=== PATIENT | female | born 1930 | race Caucasian/White ===

== ENCOUNTER → 2018-07-17 | Outpatient (CLI) | payer MEDICARE ==
--- NOTE | 2018-07-19 14:47 | CT ---
EXAMINATION TYPE: CT angio neck DATE OF EXAM: 07/17/2018 COMPARISON: None HISTORY: 87-year-old female carotid stenosis, loss of balance TECHNIQUE: Contiguous axial scanning of the head and neck performed with IV Contrast, patient injecte d with 65cc mL of Isovue 370. Coronal/sagittal MIP reconstructions performed. 3-D reconstructions gen erated on a dedicated independent workstation. CT DLP: 165.0 mGycm Automated exposure control for dose reduction was used. FINDINGS: Neck: Moderate upper lung centrilobular emphysema. Thickened right apical pleural parenchymal opacity, like ly scarring. This can be reassessed on follow-up CT chest. Some prominent retroperitoneal lymph nodes are present measuring up to 8 mm. Convention arch vessel branching anatomy. Atherosclerotic plaque causing mild narrowing at the origin of the left common carotid artery. The bilateral vertebral arteries are patent. The left vertebral artery slightly more dominant. Minimal atherosclerotic change at the left bifurcation. No significant stenosis of the left internal carotid artery. The right common carotid artery is patent with scattered mild eccentric atherosclerotic plaque and ca lcification. Mild atherosclerotic plaque and calcification at the right bifurcation causing mild, 25% narrowing at the carotid bulb. However, just distal to the bulb in the proximal right ICA, there is flap-like int raluminal filling defect that could represent prominent plaque ulceration. The contiguous lumen is na rrowed down to 2.4 mm which would be a moderate, just over 50% narrowing. Moderate spondylotic change mid to lower cervical spine. IMPRESSION: 1. MILD ATHEROSCLEROTIC CHANGE AT THE RIGHT BIFURCATION CAUSING A MILD, APPROXIMATELY 25% STENOSIS AT THE LEVEL OF THE RIGHT CAROTID BULB. 2. HOWEVER, JUST DISTAL TO THE CAROTID BULB WITHIN THE PROXIMAL RIGHT ICA, THERE IS A FLAP-LIKE FILLI NG DEFECT THAT COULD EITHER REPRESENT PROMINENT PLAQUE ULCERATION WITH LOOSE HANGING PLAQUE VERSUS A 6 MM LONG DISSECTION FLAP. 3. THE CONTIGUOUS LUMEN AT THIS LEVEL IS MODERATELY NARROWED WITH JUST OVER 50% STENOSIS. 3. COPD WITH IRREGULAR PLEURAL-BASED THICKENING AT THE RIGHT APEX PROBABLY REPRESENTING PLEURAL PAREN CHYMAL SCARRING. THREE-MONTH FOLLOW-UP CT CHEST RECOMMENDED TO REASSESS AND SURVEY THE REMAINDER OF L UNGS.
== END | disposition home or self-care (01) ==
LOC: EEVIPCON 07-09 11:00 → RADCTMAIN 15:37
PROVIDERS: ATTEND Family Medicine
DX: I65.21 Occlusion and stenosis of right carotid artery (principal); J44.9 Chronic obstructive pulmonary disease, unspecified; J92.9 Pleural plaque without asbestos; Z88.0 Allergy status to penicillin
CPT/HCPCS: 82565; 84520; 70498; 36415; Q9967

== ENCOUNTER 2020-05-19 14:22 | Inpatient (IN) | payer MEDICARE ==
[2020-05-19] MEDS ORDERED: NALOXONE 0.4 MG/ML 10 ML VIAL IVP STA (14:52)
--- NOTE | 2020-05-19 14:56 | ED ---
General Adult HPI - General Chief complaint: Altered Mental Status Stated complaint: Altered Mental Status Time Seen by Provider: 05/19/20 14:36 Source: patient Mode of arrival: EMS Limitations: no limitations, altered mental status - History of Present Illness Initial comments: Dictation was produced using [employer] dictation software. please excuse any grammatical, word or spelling errors. This patient was cared for during a federal and state declared state of emergency secondary to Covid 19 Chief Complaint: 89-year-old female past medical history of dementia, agitation, thyroid disease presents with altered mental status. History of Present Illness: 81-year-old female she was transferred to our facility from [facility]. She is accompanied by daughter. According to daughter patient has been very lethargic for the last several days. She's been very sleepy. Patient unable to provide HPI at this time. Patient was started on trazodone recently and since that patient has been more sleepy as usual. Patient unable to provide history at this time given mental status. Patient was last seen normal by daughter several weeks ago. It is unclear. Unable to obtain secondary to mental status PHYSICAL EXAM: General Impression: Obtunded, opens eyes to painful stimuli very loud noise HEENT: Normocephalic atraumatic, extra-ocular movements intact, pinpoint pupils, dry mucous membranes Cardiovascular: Heart regular rate and rhythm Chest: no retractions, no tachypnea Abdomen: abdomen soft, non-tender, non-distended, no organomegaly Musculoskeletal: Pulses present and equal in all extremities, no peripheral edema Motor: no focal deficits noted Neurological: Pinpoint pupils Skin: Intact with no visualized rashes ED course: 89-year-old female presents with altered mental status. Is unclear when patient's symptoms began however according to daughter it sounds like it's been slowly progressive over the last several days since starting a new medication. Signs upon arrival shows temperature 100.6 rectal, blood pressure 90. 52 cumbersome vital signs within acceptable limits. CODE STATUS was discussed with daughter who requests the patient be full code. Daughter requests that should patient lose a pulse or need mechanical ventilation she is agreeable. Laboratory evaluation obtained. CBC obtained showing lymphocytopenia. Coag panel is negative. Metabolic panel is within acceptable limits. Urinalysis shows 1+ ketones. Rotavirus is positive. Chest x-ray shows no acute processes. Computed tomography scan of the brain was obtained showing no acute processes. She reevaluated at bedside found to be stable medical condition. Patient be admitted for encephalopathy. At this point there is no obvious source of patient's symptoms. Hemodynamically she appears stable respiratory mejia she appears stable. Christina when patient's symptoms began. Patient be admitted to telemetry. Case was discussed with Dr. Gonzales who is willing to accept patients care for admission. Neurology will be consulted. EKG interpretation: Ventricular rate 65, normal sinus rhythm, MA interval 140, QRS 76, QTC 413. No MA prolongation, no QTC prolongation, T-wave inversions in inferior leads and medial lateral leads. No ST elevations. - Related Data Home Medications Medication Instructions Recorded Confirmed Biotin 5 mg PO DAILY 12/10/13 12/14/13 Levothyroxine Sodium [Synthroid] 0.5 tab PO DAILY 12/10/13 12/14/13 Lutein 10 mg PO DAILY 12/10/13 12/14/13 Multivitamins, Thera [Multivitamin] 1 tab PO DAILY 12/10/13 12/14/13 Tolterodine Tartrate [Tolterodine 4 mg PO HS 12/10/13 12/14/13 Tartrate ER] ramipriL [Altace] 5 mg PO DAILY 12/10/13 12/14/13 Allergies Allergy/AdvReac Type Severity Reaction Status Date / Time Penicillins Allergy Unknown Itching Verified 12/14/13 07:10 hydrocodone Allergy Unknown Verified 05/19/20 14:36 Review of Systems ROS Statement: Those systems with pertinent positive or pertinent negative responses have been documented in the HPI. ROS Other: All systems not noted in ROS Statement are negative. Past Medical History Past Medical History: Deep Vein Thrombosis (DVT), Hypertension Additional Past Medical History / Comment(s): STATES DVT LEFT GROIN (DX 30 YRS AGO), HX OF POLYPS, HEPATITIS A CHILD, SHINGLES X3 History of Any Multi-Drug Resistant Organisms: None Reported Past Surgical History: Appendectomy, Back Surgery, Joint Replacement Additional Past Surgical History / Comment(s): RT HIP REPLACEMENT, OOPHERECTOMY, CATARACTS, RECTOCELE REPAIR Additional Past Anesthesia/Blood Transfusion Reaction / Comment(s): STATES THEY HAD TO DO CPR ON HER AFTER SURGERY Past Psychological History: No Psychological Hx Reported Smoking Status: Former smoker Past Alcohol Use History: Rare Past Drug Use History: None Reported General Exam Limitations: no limitations, altered mental status Course Vital Signs 05/19/20 05/19/20 05/19/20 14:36 14:45 14:52 Temperature 98.4 F 100.6 F H Pulse Rate 73 Respiratory 23 23 Rate Blood Pressure 93/52 O2 Sat by Pulse 95 Oximetry 05/19/20 05/19/20 15:00 16:00 Temperature Pulse Rate 70 77 Respiratory 17 18 Rate Blood Pressure 111/59 107/49 O2 Sat by Pulse 98 98 Oximetry Medical Decision Making - Lab Data Result diagrams: 05/19/20 14:54 05/19/20 14:54 Lab Results 05/19/20 05/19/20 05/19/20 Range/Units 14:54 14:54 14:54 WBC 6.6 (3.8-10.6) k/uL RBC 3.82 (3.80-5.40) m/uL Hgb 11.7 (11.4-16.0) gm/dL Hct 36.5 (34.0-46.0) % MCV 95.6 (80.0-100.0) fL MCH 30.7 (25.0-35.0) pg MCHC 32.1 (31.0-37.0) g/dL RDW 13.8 (11.5-15.5) % Plt Count 216 (150-450) k/uL MPV 7.5 Neutrophils % 86 % Lymphocytes % 6 % Monocytes % 7 % Eosinophils % 0 % Basophils % 0 % Neutrophils # 5.7 (1.3-7.7) k/uL Lymphocytes # 0.4 L (1.0-4.8) k/uL Monocytes # 0.5 (0-1.0) k/uL Eosinophils # 0.0 (0-0.7) k/uL Basophils # 0.0 (0-0.2) k/uL PT 10.3 (9.0-12.0) sec INR 1.0 (<1.2) APTT 23.8 (22.0-30.0) sec Sodium (137-145) mmol/L Potassium (3.5-5.1) mmol/L Chloride (98-107) mmol/L Carbon Dioxide (22-30) mmol/L Anion Gap mmol/L BUN (7-17) mg/dL Creatinine (0.52-1.04) mg/dL Est GFR (CKD-EPI)AfAm (>60 ml/min/1.73 sqM) Est GFR (CKD-EPI)NonAf (>60 ml/min/1.73 sqM) Glucose (74-99) mg/dL Plasma Lactic Acid Gaudencio (0.7-2.0) mmol/L Calcium (8.4-10.2) mg/dL Ionized Calcium Silvia (4.5-5.3) mg/dL Magnesium (1.6-2.3) mg/dL Total Bilirubin (0.2-1.3) mg/dL AST (14-36) U/L ALT (4-34) U/L Alkaline Phosphatase (38-126) U/L Ammonia (<30) umol/L Troponin I (0.000-0.034) ng/mL Total Protein (6.3-8.2) g/dL Albumin (3.5-5.0) g/dL TSH (0.465-4.680) mIU/L Urine Color Yellow Urine Appearance Clear (Clear) Urine pH 6.5 (5.0-8.0) Ur Specific [place] 1.025 (1.001-1.035) Urine Protein Trace H (Negative) Urine Glucose (UA) Negative (Negative) Urine Ketones 1+ H (Negative) Urine Blood Negative (Negative) Urine Nitrite Negative (Negative) Urine Bilirubin Negative (Negative) Urine Urobilinogen <2.0 (<2.0) mg/dL Ur Leukocyte Esterase Negative (Negative) Coronavirus (PCR) (Not Detectd) 05/19/20 05/19/20 05/19/20 Range/Units 14:54 14:54 14:54 WBC (3.8-10.6) k/uL RBC (3.80-5.40) m/uL Hgb (11.4-16.0) gm/dL Hct (34.0-46.0) % MCV (80.0-100.0) fL MCH (25.0-35.0) pg MCHC (31.0-37.0) g/dL RDW (11.5-15.5) % Plt Count (150-450) k/uL MPV Neutrophils % % Lymphocytes % % Monocytes % % Eosinophils % % Basophils % % Neutrophils # (1.3-7.7) k/uL Lymphocytes # (1.0-4.8) k/uL Monocytes # (0-1.0) k/uL Eosinophils # (0-0.7) k/uL Basophils # (0-0.2) k/uL PT (9.0-12.0) sec INR (<1.2) APTT (22.0-30.0) sec Sodium 137 (137-145) mmol/L Potassium 4.3 (3.5-5.1) mmol/L Chloride 108 H (98-107) mmol/L Carbon Dioxide 23 (22-30) mmol/L Anion Gap 6 mmol/L BUN 24 H (7-17) mg/dL Creatinine 0.95 (0.52-1.04) mg/dL Est GFR (CKD-EPI)AfAm 62 (>60 ml/min/1.73 sqM) Est GFR (CKD-EPI)NonAf 54 (>60 ml/min/1.73 sqM) Glucose 100 H (74-99) mg/dL Plasma Lactic Acid Gaudencio 0.8 (0.7-2.0) mmol/L Calcium 8.8 (8.4-10.2) mg/dL Ionized Calcium Silvia 5.1 (4.5-5.3) mg/dL Magnesium 2.0 (1.6-2.3) mg/dL Total Bilirubin 0.4 (0.2-1.3) mg/dL AST 26 (14-36) U/L ALT 12 (4-34) U/L Alkaline Phosphatase 67 (38-126) U/L Ammonia <9 (<30) umol/L Troponin I <0.012 (0.000-0.034) ng/mL Total Protein 6.6 (6.3-8.2) g/dL Albumin 3.4 L (3.5-5.0) g/dL TSH 1.480 (0.465-4.680) mIU/L Urine Color Urine Appearance (Clear) Urine pH (5.0-8.0) Ur Specific [place] (1.001-1.035) Urine Protein (Negative) Urine Glucose (UA) (Negative) Urine Ketones (Negative) Urine Blood (Negative) Urine Nitrite (Negative) Urine Bilirubin (Negative) Urine Urobilinogen (<2.0) mg/dL Ur Leukocyte Esterase (Negative) Coronavirus (PCR) (Not Detectd) 05/19/20 Range/Units 15:50 WBC (3.8-10.6) k/uL RBC (3.80-5.40) m/uL Hgb (11.4-16.0) gm/dL Hct (34.0-46.0) % MCV (80.0-100.0) fL MCH (25.0-35.0) pg MCHC (31.0-37.0) g/dL RDW (11.5-15.5) % Plt Count (150-450) k/uL MPV Neutrophils % % Lymphocytes % % Monocytes % % Eosinophils % % Basophils % % Neutrophils # (1.3-7.7) k/uL Lymphocytes # (1.0-4.8) k/uL Monocytes # (0-1.0) k/uL Eosinophils # (0-0.7) k/uL Basophils # (0-0.2) k/uL PT (9.0-12.0) sec INR (<1.2) APTT (22.0-30.0) sec Sodium (137-145) mmol/L Potassium (3.5-5.1) mmol/L Chloride (98-107) mmol/L Carbon Dioxide (22-30) mmol/L Anion Gap mmol/L BUN (7-17) mg/dL Creatinine (0.52-1.04) mg/dL Est GFR (CKD-EPI)AfAm (>60 ml/min/1.73 sqM) Est GFR (CKD-EPI)NonAf (>60 ml/min/1.73 sqM) Glucose (74-99) mg/dL Plasma Lactic Acid Gaudencio (0.7-2.0) mmol/L Calcium (8.4-10.2) mg/dL Ionized Calcium Silvia (4.5-5.3) mg/dL Magnesium (1.6-2.3) mg/dL Total Bilirubin (0.2-1.3) mg/dL AST (14-36) U/L ALT (4-34) U/L Alkaline Phosphatase (38-126) U/L Ammonia (<30) umol/L Troponin I (0.000-0.034) ng/mL Total Protein (6.3-8.2) g/dL Albumin (3.5-5.0) g/dL TSH (0.465-4.680) mIU/L Urine Color Urine Appearance (Clear) Urine pH (5.0-8.0) Ur Specific [place] (1.001-1.035) Urine Protein (Negative) Urine Glucose (UA) (Negative) Urine Ketones (Negative) Urine Blood (Negative) Urine Nitrite (Negative) Urine Bilirubin (Negative) Urine Urobilinogen (<2.0) mg/dL Ur Leukocyte Esterase (Negative) Coronavirus (PCR) Detected A (Not Detectd) Disposition Clinical Impression: Encephalopathy Disposition: ADMITTED IP TO THIS HOSP Condition: Fair Referrals: Candi Tavarez DO [Primary Care Provider] - 1-2 days Decision Time: 16:35
[2020-05-19 15:12] LABS: Ionized Calcium 5.1 mg/dL (4.5-5.3)
[2020-05-19 15:15] LABS: Basophils % (A) 0 %; Eosinophils % (A) 0 %; HCT 36.5 % (34.0-46.0); HGB 11.7 gm/dL (11.4-16.0); Lymphocytes # (A) 0.4 k/uL (1.0-4.8); Lymphocytes % (A) 6 %; MCH 30.7 pg (25.0-35.0); MCHC 32.1 g/dL (31.0-37.0); MCV 95.6 fL (80.0-100.0); Mean Platelet Volume 7.5; Monocytes # (A) 0.5 k/uL (0-1.0); Monocytes % (A) 7 %; Neutrophils # (A) 5.7 k/uL (1.3-7.7); Neutrophils % (A) 86 %; Platelet Count 216 k/uL (150-450); RBC 3.82 m/uL (3.80-5.40); RDW 13.8 % (11.5-15.5); WBC 6.6 k/uL (3.8-10.6)
[2020-05-19 15:19] LABS: Albumin 3.4 g/dL (3.5-5.0); Calcium 8.8 mg/dL (8.4-10.2); Potassium 4.3 mmol/L (3.5-5.1); Total Bilirubin 0.4 mg/dL (0.2-1.3); Total Protein 6.6 g/dL (6.3-8.2)
[2020-05-19 15:20] LABS: Lactic Acid, Venous 0.8 mmol/L (0.7-2.0)
[2020-05-19 15:22] LABS: Appearance,Urine Clear (Clear); Bilirubin,Urine Negative (Negative); Blood,Urine Negative (Negative); Color,Urine Yellow; Glucose,Urine (UA) Negative (Negative); Ketones,Urine 1+ (Negative); Leukocyte Esterase,Urine Negative (Negative); Nitrite,Urine Negative (Negative); PH, Urine 6.5 (5.0-8.0); Protein,Urine Trace (Negative); Specific Gravity,Urine 1.025 (1.001-1.035); Urobilinogen,Urine <2.0 mg/dL (<2.0)
--- NOTE | 2020-05-19 15:37 | CT ---
EXAMINATION TYPE: CT brain wo con DATE OF EXAM: 05/19/2020 COMPARISON: None HISTORY: Altered mental status. CT DLP: 1091.[address] of the brain was performed. The ventricles, basal cisterns and sulci overlying the cerebral convexities demonstrate mild enlargem ent. Remote right occipital infarct. Remote insult left occipital lobe as well. There is no evidence for intracranial hemorrhage or sulcal effacement. There is decreased attenuation about the periventricular white matter and deep white matter of both c erebral hemispheres, compatible with chronic small vessel ischemia. Differential diagnosis does inclu de demyelination. No mass effects are seen.No midline shift. Osseous calvarium is intact. If symptoms persist consider MRI. IMPRESSION: 1. Age related atrophic and chronic small vessel ischemic change without acute intracranial process s een at this time.
[2020-05-19 15:43] LABS: Partial Thromboplastin Time 23.8 sec (22.0-30.0); Prothrombin Time 10.3 sec (9.0-12.0)
--- NOTE | 2020-05-19 16:14 | XR ---
EXAMINATION TYPE: XR chest 1V portable DATE OF EXAM: 05/19/2020 HISTORY: Shortness of breath. COMPARISON: None. TECHNIQUE: Single view of the chest is submitted. FINDINGS: Demonstrated are scattered senescent parenchymal change. There is no evidence for focal infiltrate. The heart is stable. Hilar and mediastinal structures are within normal limits. Degenerative changes are seen of the dorsal spine. IMPRESSION: 1. Chronic changes without evidence for acute pulmonary disease.
[2020-05-19] MEDS ORDERED: NALOXONE 0.4 MG/ML 1 ML VIAL IV PRN (16:35)
[2020-05-19] MEDS ORDERED: ACETAMINOPHEN TAB 325 MG TAB PO PRN (16:35)
[2020-05-19] MEDS ORDERED: IPRATROPIUM-ALBUTEROL 3 ML NEB INHALATION PRN (19:04)
[2020-05-19 19:28] LABS: C Reactive Protein 44.6 mg/L (<10.0)
[2020-05-19] MEDS: SODIUM CHLORIDE 0.9% 1,000 ML IV SCH (19:40)
--- NOTE | 2020-05-19 19:40 | HP ---
HISTORY AND PHYSICAL I am covering for Dr. Gomez. DATE OF SERVICE: 05/19/2020 CHIEF COMPLAINT: Change in mental status. HISTORY OF PRESENT ILLNESS: This 89-year-old woman with a past medical history of multiple medical problems, including history of DVT, hypertension, history of DVT of the left groin, history of hepatitis as a child, history of appendectomy, being followed by Dr. Candi Tavarez in the outpatient setting, was apparently living in [facility]. The patient has a history of dementia and agitation also. The family has noted some change in mental status over the past several days. The patient became progressively lethargic and sleepy. The patient was taken to [facility] and was admitted for further evaluation and treatment. The patient was started on trazodone recently. The patient was not sleeping well also. There is no history of any fever, rigor or chills. No history of trauma. The patient is unable to give a coherent history. She is only mumbling. Most of the history is taken from my discussion with the patient's daughter at the bedside as well as discussion with staff, review of chart and discussion with the ER physician. PAST MEDICAL HISTORY: History of DVT, hypertension, appendectomy, back surgery. MEDICATIONS: Medications prior to admission include Risperdal, Spiriva, ramipril, metoprolol, Namenda, Synthroid, Breo Ellipta, Aricept, Eliquis, Align, Lipitor. ALLERGIES: PENICILLIN, HYDROCODONE. Family history, social history, review of systems could not be taken because of the patient's change in mental status. Previous history of smoking per chart. PHYSICAL EXAMINATION: The patient is stuporous, slightly arousable. Pulse 70, blood pressure 111/59, respiration 17, temperature 100.6, pulse ox 98% on 15 L non-rebreather mask. HEENT: Conjunctivae normal. NECK: No jugular venous distention. CARDIOVASCULAR SYSTEM: S1, S2 muffled. RESPIRATORY SYSTEM: Breath sounds diminished at the bases. A few scattered rhonchi and crackles. ABDOMEN: Soft, non-tender. LEGS: No edema. No swelling. NERVOUS SYSTEM: Diffusely weak. SKIN: No ulcer, rash, bleeding. JOINTS: No active deforming arthropathy. LABS: CBC within normal limits. Sodium 137, potassium 4.3, glucose 100. COVID-19 is positive. ASSESSMENT: 1. Acute COVID-19 infection with acute hypoxic respiratory failure with possible pneumonia. 2. Toxic metabolic encephalopathy secondary to COVID-19. 3. Increased BUN. 4. Increased random blood sugar. 5. History of deep venous thrombosis. 6. History of hypertension. 7. History of appendectomy. 8. History of back surgery. 9. History of degenerative joint disease. 10.History of dementia. 11.History of agitation recently. 12.Remote history of nicotine dependence. 13.Moderate protein-calorie malnutrition. 14.FULL CODE. RECOMMENDATIONS AND DISCUSSION: In this 89-year-old woman who presented with multiple complex medical issues, we will monitor the patient closely, continue the current medications, continue symptomatic treatment. Otherwise at this time I recommend evaluation for COVID-19 looking for any inflammatory markers. I would also recommend a CT scan of the chest looking for any infiltrates. If there are significant findings, the patient might be a candidate for remdesivir. I would also recommend pulmonary consultation as well as consultation with Infectious Disease. The prognosis is guarded because of multiple complex medical issues. Further recommendations to follow. A copy of this dictation is being forwarded to Dr. Candi Tavarez, who is the primary physician. MMODL / IJN: [id number] /
[2020-05-19] MEDS ORDERED: IPRATROPIUM-ALBUTEROL 3 ML NEB INHALATION SCH (20:00)
[2020-05-19] MEDS: DEXAMETHASONE SOD PHOSPHATE 10 MG/ML 1 ML VIAL IV SCH (20:22)
[2020-05-19] MEDS: ATORVASTATIN 20 MG TAB PO SCH (20:23)
[2020-05-19] MEDS: METOPROLOL TARTRATE 25 MG TAB PO SCH (20:23)
[2020-05-19] MEDS: ASCORBIC ACID 500 MG TAB PO SCH (20:23)
[2020-05-19] MEDS: MEMANTINE 10 MG TAB PO SCH (20:23)
[2020-05-19] MEDS: APIXABAN 2.5 MG TABLET PO SCH (20:24)
[2020-05-19] MEDS ORDERED: MORPHINE SULFATE 2 MG/ML SYRINGE IVP PRN (23:10)
[2020-05-20] MEDS: DEXAMETHASONE SOD PHOSPHATE 10 MG/ML 1 ML VIAL IV SCH (09:19)
[2020-05-20] MEDS: ALBUTEROL HFA INHALER INHALATION SCH ×3 (09:52→20:29)
[2020-05-20] MEDS ORDERED: ALBUTEROL HFA INHALER INHALATION PRN (09:54)
[2020-05-20 11:13] LABS: Basophils # (A) 0.1 k/uL (0-0.2); Basophils % (A) 0 %; Eosinophils % (A) 0 %; HCT 36.8 % (34.0-46.0); Lymphocytes # (A) 0.8 k/uL (1.0-4.8); Lymphocytes % (A) 5 %; MCH 32.1 pg (25.0-35.0); MCHC 32.7 g/dL (31.0-37.0); MCV 98.1 fL (80.0-100.0); Mean Platelet Volume 7.6; Monocytes # (A) 0.5 k/uL (0-1.0); Monocytes % (A) 3 %; Neutrophils # (A) 15.8 k/uL (1.3-7.7); Neutrophils % (A) 92 %; Platelet Count 187 k/uL (150-450); RBC 3.76 m/uL (3.80-5.40); RDW 13.2 % (11.5-15.5); WBC 17.3 k/uL (3.8-10.6)
[2020-05-20 11:22] LABS: Calcium 8.6 mg/dL (8.4-10.2)
--- NOTE | 2020-05-20 11:30 | P.CNPUL ---
History of Present Illness Consult date: 05/20/20 Reason for consult: dyspnea, cough, other Chief complaint: Covid 19 pneumonia History of present illness: This is a 89-year-old female advanced dementia patient is a resident of [facility] followed Dr. Candi Tavarez for primary care activity, she was noted by family member to be more somnolent fatigued and lethargic brought into the hospital for further evaluation Covid 19 test is positive chest x-ray some subtle infiltrates are present, her past medical history significant for deep venous thrombosis, hypertension hypertensive cardiovascular disease, hepatitis, with history of advanced dementia and Alzheimer's disease, currently patient is being treated with bronchodilator, direct anticoagulants, continuation of home medicine, and dexamethasone 6 mg daily, patient white cell count is up to 17,000, BUN/creatinine 37 and 1.13, oxygen saturation is 96% on 3 L, she is awake but nonverbal and noncommunicative Review of Systems ROS unobtainable: due to mental status All systems: negative Past Medical History Past Medical History: Deep Vein Thrombosis (DVT), Hypertension Additional Past Medical History / Comment(s): STATES DVT LEFT GROIN (DX 30 YRS AGO), HX OF POLYPS, HEPATITIS A CHILD, SHINGLES X3 History of Any Multi-Drug Resistant Organisms: Unobtainable Past Surgical History: Appendectomy, Back Surgery, Joint Replacement Additional Past Surgical History / Comment(s): RT HIP REPLACEMENT, OOPHERECTOMY, CATARACTS, RECTOCELE REPAIR Past Anesthesia/Blood Transfusion Reactions: Unable to Obtain Additional Past Anesthesia/Blood Transfusion Reaction / Comment(s): STATES THEY HAD TO DO CPR ON HER AFTER SURGERY Past Psychological History: Unable to Obtain Smoking Status: Unknown if ever smoked Past Alcohol Use History: Rare Past Drug Use History: None Reported Medications and Allergies Home Medications Medication Instructions Recorded Confirmed Type Apixaban [Eliquis] 2.5 mg PO BID@0800,199905/19/20 05/19/20 History Atorvastatin [Lipitor] 20 mg PO DAILY@199905/19/20 05/19/20 History Bifidobacterium Infantis [Align] 4 mg PO DAILY@0800 05/19/20 05/19/20 History Donepezil [Aricept] 10 mg PO DAILY@0800 05/19/20 05/19/20 History Fluticasone/Vilanterol [Breo 1 puff INHALATION RT-DAILY@199905/19/20 05/19/20 History Ellipta 100-25 Mcg Inhaler] Levothyroxine Sodium [Synthroid] 75 mcg PO DAILY@0805/19/20 05/19/20 History Memantine [Namenda] 10 mg PO BID@08,199905/19/20 05/19/20 History Metoprolol Tartrate 25 mg PO BID@0800,199905/19/20 05/19/20 History Tiotropium Bieber [Spiriva 1 puff INHALATION RT-DAILY@199905/19/20 05/19/20 History Respimat] ramipriL [Ramipril] 2.5 mg PO DAILY@0805/19/20 05/19/20 History risperiDONE [RisperDAL] 1 mg PO DAILY@199905/19/20 05/19/20 History Allergies Allergy/AdvReac Type Severity Reaction Status Date / Time Penicillins Allergy Unknown Itching Verified 05/19/20 17:24 hydrocodone Allergy Unknown Verified 05/19/20 17:24 Physical Exam Vitals: Vital Signs Temp Pulse Pulse Resp BP BP Pulse Ox 05/20/20 08:00 98.5 F 70 16 110/56 98 05/20/20 03:30 98.9 F 61 17 102/60 96 05/20/20 02:48 99.1 F 73 17 105/65 97 05/20/20 01:40 99.1 F 88 16 90/42 95 05/19/20 23:00 99.0 F 93 18 107/56 95 05/19/20 20:00 84 22 121/56 94 L 05/19/20 19:00 100.8 F H 72 22 152/70 94 L 05/19/20 18:00 80 20 159/74 96 05/19/20 17:00 72 16 146/72 96 05/19/20 16:00 77 18 107/49 98 05/19/20 15:00 70 17 111/59 98 05/19/20 14:52 23 05/19/20 14:45 100.6 F H 05/19/20 14:36 98.4 F 73 23 93/52 95 Intake and Output 05/19/20 05/20/20 05/20/20 22:59 06:59 14:59 Output Total 200 100 Balance -200 -100 Output: Urine 200 100 Other: Voiding Method Indwelling Catheter Indwelling Catheter Weight 51 kg - Constitutional General appearance: average body habitus, cooperative, disheveled - EENT Eyes: PERRLA Ears: bilateral: normal - Neck Carotids: bilateral: upstroke normal Thyroid: bilateral: normal size - Respiratory Respiratory: bilateral: diminished - Cardiovascular Rhythm: regular Heart sounds: normal: S1, S2 - Gastrointestinal General gastrointestinal: normal bowel sounds - Integumentary Integumentary: normal - Musculoskeletal Musculoskeletal: generalized weakness - Psychiatric Arousable but nonverbal and noncommunicative Results - Laboratory Findings CBC and BMP: 05/20/20 10:21 05/19/20 14:54 PT/INR, D-dimer PT 10.3 sec (9.0-12.0) 05/19/20 14:54 INR 1.0 (<1.2) 05/19/20 14:54 D-Dimer 0.54 mg/L FEU (<0.60) 05/19/20 15:00 Abnormal lab findings: Abnormal Labs 05/19/20 05/19/20 05/19/20 14:54 14:54 14:54 WBC RBC Neutrophils # Lymphocytes # 0.4 L Chloride 108 H BUN 24 H Glucose 100 H C-Reactive Protein Albumin 3.4 L Urine Protein Trace H Urine Ketones 1+ H Coronavirus (PCR) 05/19/20 05/19/20 05/20/20 15:00 15:50 10:21 WBC 17.3 H RBC 3.76 L Neutrophils # 15.8 H Lymphocytes # 0.8 L Chloride BUN Glucose C-Reactive Protein 44.6 H Albumin Urine Protein Urine Ketones Coronavirus (PCR) Detected A - Diagnostic Findings Chest x-ray: report reviewed, image reviewed (Finding as noted above) Assessment and Plan Assessment: Covid 19 pneumonia Acute hypoxic respiratory failure Altered mental status History of deep venous thrombosis on the left side Advanced dementia and Alzheimer's disease Plan: Supplemental oxygen IV Decadron for 10 days IV Remdesivir for 5 days Prone positioning or side positioning if possible Continue oral direct anticoagulants Continue home medications Overall prognosis guarded Time with Patient: Greater than 30
[2020-05-20 12:17] LABS: Glucose,Whole Blood 95 mg/dL (75-99)
[2020-05-20] MEDS: lisinopriL 10 MG TAB PO SCH (13:15)
[2020-05-20] MEDS: MEMANTINE 10 MG TAB PO SCH ×2 (13:15→20:16)
[2020-05-20] MEDS: LACTOBACILLUS ACIDOPH & BULGAR 1 EACH PACKET PO SCH (13:15)
[2020-05-20] MEDS: DONEPEZIL 10 MG TAB PO SCH (13:15)
[2020-05-20] MEDS: LEVOTHYROXINE 75 MCG TAB PO SCH (13:15)
[2020-05-20] MEDS: ASCORBIC ACID 500 MG TAB PO SCH (13:16)
[2020-05-20] MEDS: CHOLECALCIFEROL 1,000 UNIT TAB PO SCH (13:16)
[2020-05-20] MEDS: ZINC SULFATE 220 MG CAP PO SCH (13:16)
[2020-05-20] MEDS: METOPROLOL TARTRATE 25 MG TAB PO SCH ×2 (13:16→16:43)
[2020-05-20] MEDS ORDERED: REMDESIVIR 200 MG in SODIUM CHLORIDE 0.9% 250 ML IVPB ONE (14:00)
--- NOTE | 2020-05-20 14:51 | P.CON ---
Consult Note - . Consult date: 05/20/20 Assessment/Plan:: Clinical Problems: Major neurocognitive disorder of the Alzheimer's type, delirium secondary clover 19 Interim history: I reviewed the medical record and attempted to interview the patient. She is an 89-year-old woman transferred from her senior care with a marked change in mental status. Her rapid COVID test was positive. The hospitalist consult to psychiatry because she has a history of aggressive behavior. She was unresponsive and was unable to obtain day history. Mental status exam: He said as a thin and frail-appearing elderly woman who is laying in bed. She did not respond to her name or arouse when I shook her leg. She was not agitated, restless or aggressive. Assessment: This is a delirium in elderly woman who has a major neurocognitive disorder with marked functional impairment. Plan: There is no indication for psychiatric intervention at this time. Thank you for this consult. Psychiatry will sign off the case.
[2020-05-20] MEDS: LORazepam 2 MG/ML INJ IV PRN (15:29)
[2020-05-20 16:37] LABS: Glucose,Whole Blood 93 mg/dL (75-99)
[2020-05-20] MEDS: APIXABAN 2.5 MG TABLET PO SCH ×2 (16:43→20:17)
[2020-05-20] MEDS ORDERED: DILTIAZEM 5 MG/ML 5 ML VIAL IVP STA (16:59)
[2020-05-20] MEDS ORDERED: DILTIAZEM DRIP BOLUS FROM BAG 1 MG SOLN IV STA (17:33)
[2020-05-20] MEDS ORDERED: niCARdipine 20 MG in SODIUM CHLORIDE 0.9% 192 ML IV SCH (18:00)
[2020-05-20] MEDS: DILTIAZEM 125 MG in SODIUM CHLORIDE 0.9% 100 ML IV SCH (18:12)
[2020-05-20] MEDS: ATORVASTATIN 20 MG TAB PO SCH (20:16)
[2020-05-20 20:40] LABS: Glucose,Whole Blood 95 mg/dL (75-99)
[2020-05-21] MEDS: SODIUM CHLORIDE 0.9% 1,000 ML IV SCH (01:26)
[2020-05-21 06:39] LABS: Glucose,Whole Blood 98 mg/dL (75-99)
--- NOTE | 2020-05-21 07:05 | PN ---
PROGRESS NOTE DATE OF SERVICE: 05/20/2020 I am covering for Dr. Gomez. INTERVAL HISTORY: This 89-year-old woman who was admitted with change in mental status had COVID-19. The patient also had COVID-19 pneumonia. he patient was confused and the patient was feeling better, but currently the patient is agitated also. The patient was started on remdesivir also. Psychiatry has also been consulted. Patient also has atrial fibrillation with fast ventricular rate. Cardizem has been initiated. Cardiology also has been consulted. PAST MEDICAL HISTORY: Reviewed. REVIEW OF SYMPTOMS: Review of systems could not be taken as the patient is confused at this time. CODE STATUS: THE PATIENT CONTINUES TO BE FULL CODE PER FAMILY INSTRUCTIONS CURRENT MEDICATIONS: Tylenol, Ventolin, Eliquis, vitamin C, Lipitor, cholecalciferol, Decadron, Cardizem, Aricept, Zestril, Ativan, Namenda, Narcan, remdesivir. PHYSICAL EXAM: Patient is conscious, confused. Pulse 147 and irregular. Blood pressure 96/62, respirations 16, temperature 99 degrees, pulse ox 96% on 2 L. HEENT: Conjunctivae normal. NECK: No jugular venous distention. CARDIOVASCULAR: S1 and S2. LUNGS: Breath sounds diminished in the bases, a few scattered rhonchi and crackles. ABDOMEN: Soft and nontender. NERVOUS SYSTEM: No focal deficits. LABS: WBC 17.3, hemoglobin 12, and BUN is 1.13. ASSESSMENT: 1. Acute COVID-19 infection with acute bilateral pneumonia with history of pneumonia with acute hypoxic respiratory failure. 2. Toxic metabolic encephalopathy secondary to COVID-19. 3. Atrial fibrillation with fast ventricular rate. 4. Increased BUN. 5. Increased random blood sugar. 6. History of deep vein thrombosis. 7. Hypertension. 8. History of appendectomy. 9. History of back surgery. 10.History of degenerative joint disease. 11.History of dementia. 12.History of agitation recently. 13.Remote history of nicotine dependence. 14.Moderate protein calorie malnutrition. 15.FULL CODE. RECOMMENDATIONS AND DISCUSSION: I recommend to continue current medications, continue symptomatic treatment, continue remdesivir, continue Cardizem. Cardiology consultation. Otherwise a 2D echo with Doppler. Psychiatry has seen the patient and pulmonary has also seen the patient. Psychiatry has signed off from the case. Otherwise, we will continue to monitor. Prognosis guarded. Further recommendations to follow. MMODL / IJN: [id number] /
[2020-05-21 08:02] LABS: Basophils % (A) 0 %; Eosinophils % (A) 0 %; HCT 41.3 % (34.0-46.0); HGB 13.8 gm/dL (11.4-16.0); Lymphocytes % (A) 7 %; MCH 31.6 pg (25.0-35.0); MCHC 33.3 g/dL (31.0-37.0); MCV 94.9 fL (80.0-100.0); Mean Platelet Volume 8.1; Monocytes # (A) 0.5 k/uL (0-1.0); Monocytes % (A) 4 %; Neutrophils # (A) 11.7 k/uL (1.3-7.7); Neutrophils % (A) 88 %; Platelet Count 213 k/uL (150-450); RBC 4.36 m/uL (3.80-5.40); RDW 13.3 % (11.5-15.5); WBC 13.3 k/uL (3.8-10.6)
[2020-05-21 08:09] LABS: Calcium 8.6 mg/dL (8.4-10.2); Potassium 4.3 mmol/L (3.5-5.1)
[2020-05-21] MEDS: lisinopriL 10 MG TAB PO SCH (09:10)
[2020-05-21] MEDS: METOPROLOL TARTRATE 50 MG TAB PO SCH ×2 (09:10→21:46)
[2020-05-21] MEDS: CHOLECALCIFEROL 1,000 UNIT TAB PO SCH (09:10)
[2020-05-21] MEDS: DONEPEZIL 10 MG TAB PO SCH (09:10)
[2020-05-21] MEDS: ZINC SULFATE 220 MG CAP PO SCH (09:10)
[2020-05-21] MEDS: LEVOTHYROXINE 75 MCG TAB PO SCH (09:10)
[2020-05-21] MEDS: ASCORBIC ACID 500 MG TAB PO SCH (09:10)
[2020-05-21] MEDS: LACTOBACILLUS ACIDOPH & BULGAR 1 EACH PACKET PO SCH (09:11)
[2020-05-21] MEDS: DEXAMETHASONE SOD PHOSPHATE 10 MG/ML 1 ML VIAL IV SCH (09:11)
[2020-05-21] MEDS: MEMANTINE 10 MG TAB PO SCH ×2 (09:11→21:46)
[2020-05-21] MEDS: APIXABAN 2.5 MG TABLET PO SCH ×2 (09:11→21:46)
--- NOTE | 2020-05-21 11:51 | P.PN ---
Subjective Progress Note Date: 05/21/20 Principal diagnosis: Covid 19 pneumonia Acute hypoxic respiratory failure Altered mental status History of deep venous thrombosis on the left side Advanced dementia and Alzheimer's disease 05/21/2020, patient seen eval examined during the rounds labs reviewed medications reviewed, she remains afebrile, oxygen saturation 93% on 3 L, hemodynamic status stable, This is a 89-year-old female advanced dementia patient [facility] Dr. Candi Tavarez for primary care activity, she was noted by family member to be more somnolent fatigued and lethargic brought into the hospital for further evaluation Covid 19 test is positive chest x-ray some subtle infiltrates are present, her past medical history significant for deep venous thrombosis, hypertension hypertensive cardiovascular disease, hepatitis, with history of advanced dementia and Alzheimer's disease, currently patient is being treated with bronchodilator, direct anticoagulants, continuation of home medicine, and dexamethasone 6 mg daily, patient white cell count is up to 17,000, BUN/creatinine 37 and 1.13, oxygen saturation is 96% on 3 L, she is awake but nonverbal and noncommunicative Objective - Vital Signs Vital signs: Vital Signs Temp 98.5 F 05/21/20 08:00 Pulse 106 H 05/21/20 08:00 Resp 16 05/21/20 08:00 BP 131/72 05/21/20 08:00 Pulse Ox 93 L 05/21/20 08:00 Intake & Output 05/20/20 05/21/20 05/21/20 18:59 06:59 18:59 Output Total 100 100 Balance -100 -100 Weight 51 kg 54.5 kg Output: Urine 100 100 Other: Voiding Method Indwelling Catheter Indwelling Catheter Indwelling Catheter # Bowel Movements 0 - Exam - Constitutional General appearance: average body habitus, cooperative, disheveled - EENT Eyes: PERRLA Ears: bilateral: normal - Neck Carotids: bilateral: upstroke normal Thyroid: bilateral: normal size - Respiratory Respiratory: bilateral: diminished - Cardiovascular Rhythm: regular Heart sounds: normal: S1, S2 - Gastrointestinal General gastrointestinal: normal bowel sounds - Integumentary Integumentary: normal - Musculoskeletal Musculoskeletal: generalized weakness - Psychiatric Arousable but nonverbal and noncommunicative - Labs CBC & Chem 7: 05/21/20 06:56 05/21/20 06:56 Labs: Abnormal Lab Results - Last 24 Hours (Table) 05/21/20 05/21/20 Range/Units 06:56 06:56 WBC 13.3 H (3.8-10.6) k/uL Neutrophils # 11.7 H (1.3-7.7) k/uL Chloride 111 H (98-107) mmol/L BUN 35 H (7-17) mg/dL Microbiology - Last 24 Hours (Table) 05/19/20 14:54 Blood Culture - Preliminary Blood No Growth after 24 hours Assessment and Plan Assessment: Covid 19 pneumonia Acute hypoxic respiratory failure Altered mental status History of deep venous thrombosis on the left side Advanced dementia and Alzheimer's disease Plan: Supplemental oxygen IV Decadron for 10 days IV Remdesivir for 5 days Prone positioning or side positioning if possible Continue oral direct anticoagulants Continue home medications Overall prognosis guarded Time with Patient: Greater than 30
[2020-05-21 12:11] LABS: Glucose,Whole Blood 118 mg/dL (75-99)
[2020-05-21] MEDS: ALBUTEROL HFA INHALER INHALATION SCH ×4 (12:11→20:26)
[2020-05-21] MEDS: REMDESIVIR 100 MG in SODIUM CHLORIDE 0.9% 250 ML IVPB SCH (12:16)
--- NOTE | 2020-05-21 13:23 | P.CRDCN ---
History of Present Illness Consult date: 05/21/20 History of present illness: CHIEF COMPLAINT: A. fib with RVR HISTORY OF PRESENT ILLNESS: This is an 89-year-old female who was brought to the hospital secondary to being lethargic. We have been asked to see the patient in consultation for A. fib with RVR. Patient is positive for COVID. Patient was admitted to the hospital. Patient went into A. fib with RVR yesterday. She was started on a Cardizem drip. Patient's heart rate remains mildly uncontrolled this morning. DIAGNOSTICS: EKG reveals sinus rhythm upon admission Chest xray chronic changes without evidence for acute pulmonary disease Laboratory data: WBC 13.3. Hemoglobin 13.8. Platelet count 213. Sodium 142. Potassium 4.3. BUN 35. Creatinine 0.79. Current home cardiac medications include metoprolol 25 mg BID, Eliquis 2.5mg twice a day, and Lipitor 20 mg daily REVIEW OF SYSTEMS: Thorough review of systems not completed secondary to limited evaluation/examination due to Covid19 PHYSICAL EXAM: Thorough physical exam not completed secondary to limited evaluation/examination and due to Covid19 ASSESSMENT: Covid 19 New-onset atrial fibrillation with rapid ventricular response History of DVT, on long-term antibiotic regulation with Eliquis Dementia PLAN: Obtain 2-D echo to assess cardiac structure and function Continue Eliquis Increase metoprolol to 50 mg twice a day May discontinue Cardizem drip if patient's heart rate improves after administration of metoprolol Further recommendations pending patient's course Nurse practitioner note has been reviewed by physician. Signing provider agrees with the documented findings, assessment, and plan of care. Past Medical History Past Medical History: Deep Vein Thrombosis (DVT), Hypertension Additional Past Medical History / Comment(s): STATES DVT LEFT GROIN (DX 30 YRS AGO), HX OF POLYPS, HEPATITIS A CHILD, SHINGLES X3 History of Any Multi-Drug Resistant Organisms: Unobtainable Past Surgical History: Appendectomy, Back Surgery, Joint Replacement Additional Past Surgical History / Comment(s): RT HIP REPLACEMENT, OOPHERECTOMY, CATARACTS, RECTOCELE REPAIR Past Anesthesia/Blood Transfusion Reactions: Unable to Obtain Additional Past Anesthesia/Blood Transfusion Reaction / Comment(s): STATES THEY HAD TO DO CPR ON HER AFTER SURGERY Past Psychological History: Unable to Obtain Smoking Status: Unknown if ever smoked Past Alcohol Use History: Rare Past Drug Use History: None Reported Medications and Allergies Home Medications Medication Instructions Recorded Confirmed Type Apixaban [Eliquis] 2.5 mg PO BID@0800,199905/19/20 05/19/20 History Atorvastatin [Lipitor] 20 mg PO DAILY@199905/19/20 05/19/20 History Bifidobacterium Infantis [Align] 4 mg PO DAILY@0800 05/19/20 05/19/20 History Donepezil [Aricept] 10 mg PO DAILY@0800 05/19/20 05/19/20 History Fluticasone/Vilanterol [Breo 1 puff INHALATION RT-DAILY@199905/19/20 05/19/20 History Ellipta 100-25 Mcg Inhaler] Levothyroxine Sodium [Synthroid] 75 mcg PO DAILY@0800 05/19/20 05/19/20 History Memantine [Namenda] 10 mg PO BID@0800,199905/19/20 05/19/20 History Metoprolol Tartrate 25 mg PO BID@0800,199905/19/20 05/19/20 History Tiotropium [place] [Spiriva 1 puff INHALATION RT-DAILY@199905/19/20 05/19/20 History Respimat] ramipriL [Ramipril] 2.5 mg PO DAILY@0800 05/19/20 05/19/20 History risperiDONE [RisperDAL] 1 mg PO DAILY@199905/19/20 05/19/20 History Allergies Allergy/AdvReac Type Severity Reaction Status Date / Time Penicillins Allergy Unknown Itching Verified 05/19/20 17:24 hydrocodone Allergy Unknown Verified 05/19/20 17:24 Physical Exam Vitals: Vital Signs Temp Pulse Resp BP Pulse Ox 05/21/20 12:00 83 16 112/69 93 L 05/21/20 08:00 98.5 F 106 H 16 131/72 93 L 05/21/20 03:39 98.1 F 94 19 131/70 94 L 05/21/20 00:00 98.4 F 86 17 107/52 96 05/20/20 20:00 98.1 F 75 17 105/67 96 05/20/20 18:10 125 H 16 91/60 97 05/20/20 16:00 147 H 16 96/62 96 05/20/20 14:00 16 Intake and Output 05/20/20 05/21/20 05/21/20 22:59 06:59 14:59 Output Total 100 Balance -100 Output: Urine 100 Other: Voiding Method Indwelling Catheter Indwelling Catheter Indwelling Catheter # Bowel Movements 0 Weight 54.5 kg Results 05/21/20 06:56 05/21/20 06:56 CBC 05/21/20 Range/Units 06:56 WBC 13.3 H (3.8-10.6) k/uL RBC 4.36 (3.80-5.40) m/uL Hgb 13.8 (11.4-16.0) gm/dL Hct 41.3 (34.0-46.0) % Plt Count 213 (150-450) k/uL Comprehensive Metabolic Panel 05/21/20 Range/Units 06:56 Sodium 142 (137-145) mmol/L Potassium 4.3 (3.5-5.1) mmol/L Chloride 111 H (98-107) mmol/L Carbon Dioxide 22 (22-30) mmol/L BUN 35 H (7-17) mg/dL Creatinine 0.79 (0.52-1.04) mg/dL Glucose 97 (74-99) mg/dL Calcium 8.6 (8.4-10.2) mg/dL Current Medications Generic Name Dose Route Start Last Admin Trade Name Freq PRN Reason Stop Dose Admin Acetaminophen 650 mg 05/19/20 16:35 05/19/20 19:25 Acetaminophen Tab 325 Mg Tab PO 650 mg Q6HR PRN Administration Mild Pain or Fever > 100.5 Albuterol Sulfate 2 puff 05/19/20 20:43 05/21/20 12:16 Albuterol Hfa Inhaler INHALATION 2 puff RT-QID JULIOCESAR Administration Albuterol Sulfate 2 puff 05/20/20 09:54 Albuterol Hfa Inhaler INHALATION RT-TID PRN Shortness Of Breath Or Wheezing Apixaban 2.5 mg 05/19/20 20:00 05/21/20 09:11 Apixaban 2.5 Mg Tablet PO 2.5 mg BID@0800,2000 JULIOCESAR Administration Ascorbic Acid 500 mg 05/19/20 19:15 05/21/20 09:10 Ascorbic Acid 500 Mg Tab PO 500 mg DAILY JULIOCESAR Administration Atorvastatin Calcium 20 mg 05/19/20 20:00 05/20/20 20:16 Atorvastatin 20 Mg Tab PO 20 mg DAILY@1999 JULIOCESAR Administration Cholecalciferol 1,000 unit 05/20/20 09:00 05/21/20 09:10 Cholecalciferol 1,000 Unit Tab PO 1,000 unit DAILY JULIOCESAR Administration Dexamethasone Sodium Phosphate 6 mg 05/19/20 19:15 05/21/20 09:11 Dexamethasone Sod Phosphate 10 Mg/Ml 1 Ml Vial IV 6 mg DAILY JULIOCESAR Administration Donepezil HCl 10 mg 05/20/20 08:00 05/21/20 09:10 Donepezil 10 Mg Tab PO 10 mg DAILY@0800 JULIOCESAR Administration Sodium Chloride 1,000 mls @ 20 mls/hr 05/19/20 16:45 05/21/20 01:26 Saline 0.9% IV Not Given .Q24H JULIOCESAR Remdesivir 100 mg/ Sodium 250 mls @ 250 mls/hr 05/21/20 14:00 05/21/20 12:16 Chloride IVPB 05/24/20 14:59 250 mls/hr DAILY@1400 JULIOCESAR Administration Diltiazem HCl 125 mg/ Sodium 125 mls @ 5 mls/hr 05/20/20 18:00 05/20/20 18:12 Chloride IV 5 mg/hr .Q24H JULIOCESAR 5 mls/hr Administration 5 MG/HR Lactobacillus Acidoph/Bulgaricus 1 each 05/20/20 08:00 05/21/20 09:11 Lactobacillus Acidoph & Bulgar 1 Each Packet PO 1 each DAILY@0800 JULIOCESAR Administration Levothyroxine Sodium 75 mcg 05/20/20 08:00 05/21/20 09:10 Levothyroxine 75 Mcg Tab PO 75 mcg DAILY@0800 JULIOCESAR Administration Lisinopril 10 mg 05/20/20 08:00 05/21/20 09:10 Lisinopril 10 Mg Tab PO 10 mg DAILY@0800 JULIOCESAR Administration Lorazepam 0.5 mg 05/20/20 15:20 05/20/20 15:29 Lorazepam 2 Mg/Ml Inj IV 0.5 mg Q6HR PRN Administration Anxiety Memantine 10 mg 05/19/20 20:00 05/21/20 09:11 Memantine 10 Mg Tab PO 10 mg BID@ JULIOCESAR Administration Metoprolol Tartrate 50 mg 05/21/20 09:00 05/21/20 09:10 Metoprolol Tartrate 50 Mg Tab PO 50 mg BID@0800,1999 JULIOCESAR Administration Morphine Sulfate 2 mg 05/19/20 23:10 Morphine Sulfate 2 Mg/Ml Syringe IVP Q6H PRN Pain/Discomfort Naloxone HCl 0.2 mg 05/19/20 16:35 Naloxone 0.4 Mg/Ml 1 Ml Vial IV Q2M PRN Opioid Reversal Zinc Sulfate 220 mg 05/20/20 09:00 05/21/20 09:10 Zinc Sulfate 220 Mg Cap PO 220 mg DAILY JULIOCESAR Administration Intake and Output 05/20/20 05/21/20 05/21/20 22:59 06:59 14:59 Output Total 100 Balance -100 Output: Urine 100 Other: Voiding Method Indwelling Catheter Indwelling Catheter Indwelling Catheter # Bowel Movements 0 Weight 54.5 kg 05/21/20 06:56 05/21/20 06:56
[2020-05-21] MEDS: LORazepam 2 MG/ML INJ IV PRN ×2 (16:44→22:30)
[2020-05-21 16:49] LABS: Glucose,Whole Blood 149 mg/dL (75-99)
[2020-05-21] MEDS: DILTIAZEM 125 MG in SODIUM CHLORIDE 0.9% 100 ML IV SCH (16:54)
--- NOTE | 2020-05-21 16:56 | PN ---
PROGRESS NOTE DATE OF SERVICE: 05/21/2020 I am covering for Dr. Gomez. This 89-year-old woman who was admitted with acute Covid-19 infection bilateral pneumonia also had acute hypoxic respiratory failure. Patient also had metabolic encephalopathy. Patient has waxing and waning sensorium also. The patient also had developed atrial fibrillation, rapid ventricular rate. Cardiology has seen the patient. Recommend increase metoprolol 50 mg twice daily and continue the Eliquis. Cardizem drip has been discontinued. Past medical history reviewed. REVIEW OF SYMPTOMS: Could not be taken. The patient continues to be confused and stuporous. CURRENT MEDICATIONS: Tylenol, Ventolin, Eliquis, vitamin C, Lipitor, vitamin D3, Decadron, Cardizem CD, Aricept, Lactinex, Synthroid, Zestril, Namenda. Doses reviewed. PHYSICAL EXAM: Patient is stuporous. Pulse 83. Blood pressure 112/69, respirations 16, temperature 98.2, pulse ox 98% on 3 L. HEENT is conjunctivae normal. NECK: No JVD. Cardiovascular system: S1, S2 regular rate and rhythm. RESPIRATIONS: Breath sounds diminished in the bases. No rhonchi. No crackles. ABDOMEN: Soft, nontender. LEGS are no edema. No swelling. NERVOUS SYSTEM: No focal deficits. LAB: WBC 13.3, hemoglobin 13.8, sodium 140, potassium 4.3, glucose 118. ASSESSMENT: 1. Acute Covid-19 infection with acute bilateral pneumonia with acute hypoxic respiratory failure, present on admission, on Remdesivir. 2. Atrial fibrillation with fast ventricular rate. 3. Metabolic encephalopathy secondary to Covid-19. 4. Increased BUN. 5. Increased random blood sugar. 6. History of deep vein thrombosis. 7. Hypertension. 8. History of appendectomy. 9. History of back surgery. 10.History of degenerative joint disease. 11.History of dementia. 12.History of agitation recently. 13.Remote history of nicotine dependence. 14.Moderate protein calorie malnutrition. 15.FULL CODE. RECOMMENDATIONS AND DISCUSSION: Recommend to continue current medications, management and monitoring and symptomatic treatment. Continue with increased dose of beta blockers. Stop Cardizem per Cardiology. Otherwise we will monitor the patient closely. The patient is still hypoxic. The most recent chest x-ray was done 2 days ago. I will repeat a chest x-ray and ensure stability. Guarded prognosis because of multiple complex medical issues. Pulmonary has been also consulted and the patient is also receiving Remdesivir. MMODL / IJN: [id number] /
[2020-05-21 20:48] LABS: Glucose,Whole Blood 133 mg/dL (75-99)
[2020-05-21] MEDS: ATORVASTATIN 20 MG TAB PO SCH (21:46)
[2020-05-22 06:48] LABS: Glucose,Whole Blood 111 mg/dL (75-99)
[2020-05-22] MEDS: ALBUTEROL HFA INHALER INHALATION SCH ×4 (08:27→21:40)
[2020-05-22] MEDS: ZINC SULFATE 220 MG CAP PO SCH (08:37)
[2020-05-22] MEDS: APIXABAN 2.5 MG TABLET PO SCH ×2 (08:38→22:29)
[2020-05-22] MEDS: MEMANTINE 10 MG TAB PO SCH ×2 (08:38→22:29)
[2020-05-22] MEDS: CHOLECALCIFEROL 1,000 UNIT TAB PO SCH (08:38)
[2020-05-22] MEDS: DEXAMETHASONE SOD PHOSPHATE 10 MG/ML 1 ML VIAL IV SCH (08:38)
[2020-05-22] MEDS: DONEPEZIL 10 MG TAB PO SCH (08:38)
[2020-05-22] MEDS: METOPROLOL TARTRATE 50 MG TAB PO SCH ×2 (08:38→22:29)
[2020-05-22] MEDS: LACTOBACILLUS ACIDOPH & BULGAR 1 EACH PACKET PO SCH (08:38)
[2020-05-22] MEDS: lisinopriL 10 MG TAB PO SCH (08:38)
[2020-05-22] MEDS: LEVOTHYROXINE 75 MCG TAB PO SCH (08:38)
[2020-05-22] MEDS: SODIUM CHLORIDE 0.9% 1,000 ML IV SCH (08:39)
[2020-05-22] MEDS: ASCORBIC ACID 500 MG TAB PO SCH (08:40)
[2020-05-22 10:11] LABS: Basophils % (A) 0 %; Eosinophils % (A) 0 %; HCT 40.6 % (34.0-46.0); HGB 13.6 gm/dL (11.4-16.0); Lymphocytes % (A) 8 %; MCH 31.7 pg (25.0-35.0); MCHC 33.4 g/dL (31.0-37.0); MCV 94.8 fL (80.0-100.0); Mean Platelet Volume 7.8; Monocytes # (A) 0.4 k/uL (0-1.0); Monocytes % (A) 4 %; Neutrophils # (A) 10.7 k/uL (1.3-7.7); Neutrophils % (A) 87 %; Platelet Count 220 k/uL (150-450); RBC 4.28 m/uL (3.80-5.40); RDW 13.3 % (11.5-15.5); WBC 12.2 k/uL (3.8-10.6)
[2020-05-22 10:53] LABS: African American GFR (CKD) >90 (>60 ml/min/1.73 sqM); Anion Gap 5 mmol/L; Blood Urea Nitrogen 34 mg/dL (7-17); Calcium 8.5 mg/dL (8.4-10.2); Carbon Dioxide 23 mmol/L (22-30); Chloride 114 mmol/L (98-107); Glucose 136 mg/dL (74-99); Non-African American GFR(CKD) 80 (>60 ml/min/1.73 sqM); Sodium 142 mmol/L (137-145)
--- NOTE | 2020-05-22 10:54 | ECHOF ---
Referral Reason:atrial fib MEASUREMENTS -------- HEIGHT: 170.2 cm WEIGHT: 52.6 kg BP: 118/68 IVSd: 1.0 cm (0.6 - 1.1) LVIDd: 3.7 cm (3.9 - 5.3) LVPWd: 1.1 cm (0.6 - 1.1) IVSs: 1.4 cm LVIDs: 2.0 cm LVPWs: 1.8 cm Ao Diam: 3.2 cm (2.0 - 3.7) AV Cusp: 1.8 cm (1.5 - 2.6) LA Diam: 2.9 cm (2.7 - 3.8) MV EXCURSION: 13.059 mm (> 18.000) MV EF SLOPE: 94 mm/s (70 - 150) EPSS: 0.6 cm MV E Noah: 0.87 m/s MV DecT: 231 ms MV A Noah: 0.36 m/s MV E/A Ratio: 2.41 RAP: 5.00 mmHg RVSP: 20.18 mmHg FINDINGS -------- Atrial fibrillation. This was a technically difficult study with suboptimal views. The left ventricular size is normal. Left ventricular wall thickness is normal. Overall left vent ricular systolic function is normal with, an EF between 55 - 60 %. The right ventricle is normal in size. The left atrial size is normal. The right atrial size is normal. Lumason used Aortic valve is trileaflet and is mildly thickened. The mitral valve leaflets are mildly thickened. Mild mitral regurgitation is present. The tricuspid valve appears structurally normal. Mild tricuspid regurgitation present. Right vent ricular systolic pressure is normal at < 35 mmHg. The pulmonic valve was not well visualized. There is no pulmonic regurgitation present. The aortic root size is normal. IVC Not well visulized. There is no pericardial effusion. CONCLUSIONS -------- 1. Left ventricular wall thickness is normal. 2. Overall left ventricular systolic function is normal with, an EF between 55 - 60 %. 3. The left atrial size is normal. 4. Aortic valve is trileaflet and is mildly thickened. 5. The mitral valve leaflets are mildly thickened. 6. Mild mitral regurgitation is present. 7. Mild tricuspid regurgitation present. 8. There is no pericardial effusion. [employer]: Nereida Espinal [facility]
[2020-05-22 10:57] LABS: Potassium 4.9 mmol/L (3.5-5.1)
--- NOTE | 2020-05-22 10:59 | P.PN ---
Subjective Progress Note Date: 05/22/20 Physical 81-year-old female patient, admitted to the hospital with symptoms of lethargy, she ruled in for COVID-19. Cardiology was following the patient because of atrial fibrillation with a rapid ventricular response. Patient this morning continued to be on a Cardizem drip, her heart rate was in the 70s. Echocardiogram with Doppler study revealed a normal left ventricular systolic function. At pressure this morning 138/70 with a heart rate in the 70s, 90% on 6 L of oxygen. Objective - Vital Signs Vital signs: Vital Signs Temp 98.0 F 05/22/20 04:00 Pulse 98 05/22/20 08:00 Resp 16 05/22/20 08:00 BP 139/76 05/22/20 08:00 Pulse Ox 90 L 05/22/20 08:00 Intake & Output 05/21/20 05/22/20 05/22/20 18:59 06:59 18:59 Intake Total 113.5 90 Output Total 100 100 Balance 13.5 -100 90 Weight 53 kg Intake: Intake, IV Titration 113.5 Amount Diltiazem 125 mg In 113.5 Sodium Chloride 0.9% 100 ml @ 5 MG/HR 5 mls/hr IV .Q24H [facility] Rx#:[id number] Oral 90 Output: Urine 100 100 Other: Voiding Method Indwelling Catheter Diaper Diaper # Voids 5 1 # Bowel Movements 0 - Exam PHYSICAL EXAMINATION: Thorough physical examination not completed secondary to limited evaluation/examination due to COVID-19 - Labs CBC & Chem 7: 05/22/20 09:33 05/21/20 06:56 Labs: Abnormal Lab Results - Last 24 Hours (Table) 05/21/20 05/21/20 05/21/20 Range/Units 12:10 16:46 20:45 WBC (3.8-10.6) k/uL Neutrophils # (1.3-7.7) k/uL POC Glucose (mg/dL) 118 H 149 H 133 H (75-99) mg/dL 05/22/20 05/22/20 Range/Units 06:24 09:33 WBC 12.2 H (3.8-10.6) k/uL Neutrophils # 10.7 H (1.3-7.7) k/uL POC Glucose (mg/dL) 111 H (75-99) mg/dL Microbiology - Last 24 Hours (Table) 05/19/20 14:54 Blood Culture - Preliminary Blood No Growth after 48 hours Assessment and Plan Plan: Assessment and plan #1 acute COVID-19 infection #2 persistent atrial fibrillation #3 history of DVT #4 dementia Plan We will discontinue the IV Cardizem drip and continue the patient on her current medications. We will follow her along with you now on an as-needed basis only, please don't hesitate to call if you have any questions. DNP note has been reviewed, I agree with a documented findings and plan of care. Patient was seen and examined.
--- NOTE | 2020-05-22 12:33 | P.PN ---
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 fib with RVR, cardiology is also following she has been on Cardizem drip now 05/21/2020, patient seen eval examined during the rounds labs reviewed medications reviewed, she remains afebrile, oxygen saturation 93% on 3 L, he modynamic status stable, This is a 89-year-old female advanced dementia patient is a resident of [facility] followed Dr. Candi Tavarez for primary care activity, she was noted by family member to be more somnolent fatigued and lethargic brought into the hospital for further evaluation Covid 19 test is positive chest x-ray some subtle infiltrates are present, her past medical history significant for deep venous thrombosis, hypertension hypertensive cardiovascular disease, hepatitis, with history of advanced dementia and Alzheimer's disease, currently patient is being treated with bronchodilator, direct anticoagulants, continuation of home medicine, and dexamethasone 6 mg daily, patient white cell count is up to 17,000, BUN/creatinine 37 and 1.13, oxygen saturation is 96% on 3 L, she is a wake but nonverbal and noncommunicative Objective - Vital Signs Vital signs: Vital Signs Temp 98.0 F 05/22/20 04:00 Pulse 98 05/22/20 08:00 Resp 16 05/22/20 08:00 BP 139/76 05/22/20 08:00 Pulse Ox 90 L 05/22/20 08:00 Intake & Output 05/21/20 05/22/20 05/22/20 18:59 06:59 18:59 Intake Total 113.5 90 Output Total 100 100 Balance 13.5 -100 90 Weight 53 kg Intake: Intake, IV Titration 113.5 Amount Diltiazem 125 mg In 113.5 Sodium Chloride 0.9% 100 ml @ 5 MG/HR 5 mls/hr IV .Q24H COUNTS INCLUDE 234 BEDS AT THE [facility] Rx#:[id number] Oral 90 Output: Urine 100 100 Other: Voiding Method Indwelling Catheter Diaper Diaper # Voids 5 1 # Bowel Movements 0 - Exam - Constitutional General appearance: average body habitus, cooperative, disheveled - EENT Eyes: PERRLA Ears: bilateral: normal - Neck Carotids: bilateral: upstroke normal Thyroid: bilateral: normal size - Respiratory Respiratory: bilateral: diminished - Cardiovascular Rhythm: regular Heart sounds: normal: S1, S2 - Gastrointestinal General gastrointestinal: normal bowel sounds - Integumentary Integumentary: normal - Musculoskeletal Musculoskeletal: generalized weakness - Psychiatric Arousable but nonverbal and noncommunicative - Labs CBC & Chem 7: 05/22/20 09:33 05/22/20 09:15 Labs: Abnormal Lab Results - Last 24 Hours (Table) 05/21/20 05/21/20 05/22/20 Range/Units 16:46 20:45 06:24 WBC (3.8-10.6) k/uL Neutrophils # (1.3-7.7) k/uL Chloride (98-107) mmol/L BUN (7-17) mg/dL Glucose (74-99) mg/dL POC Glucose (mg/dL) 149 H 133 H 111 H (75-99) mg/dL 05/22/20 05/22/20 Range/Units 09:15 09:33 WBC 12.2 H (3.8-10.6) k/uL Neutrophils # 10.7 H (1.3-7.7) k/uL Chloride 114 H (98-107) mmol/L BUN 34 H (7-17) mg/dL Glucose 136 H (74-99) mg/dL POC Glucose (mg/dL) (75-99) mg/dL Microbiology - Last 24 Hours (Table) 05/19/20 14:54 Blood Culture - Preliminary Blood No Growth after 48 hours Assessment and Plan Assessment: Atrial fibrillation with RVR Covid 19 pneumonia Acute hypoxic respiratory failure Altered mental status History of deep 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 fib RVR Supplemental oxygen IV Decadron for 10 days IV Remdesivir for 5 days Prone positioning or side positioning if possible Continue oral direct anticoagulants Continue home medications Overall prognosis guarded Time with Patient: Greater than 30
[2020-05-22] MEDS: REMDESIVIR 100 MG in SODIUM CHLORIDE 0.9% 250 ML IVPB SCH (12:48)
[2020-05-22] MEDS: LORazepam 2 MG/ML INJ IV PRN ×2 (15:29→23:26)
--- NOTE | 2020-05-22 15:40 | P.PN ---
Subjective Progress Note Date: 05/22/20 This is an 81-year-old female who resides at [facility], admitted with acute bilateral coving pneumonia, acute hypoxic respiratory failure, metabolic encephalopathy, atrial fibrillation and multiple other medical issues.maintaining O2 sats in the low 90s on 6 L nasal cannula. Continues on Decadron, Remdesivir. Afebrile, WBC 12.2. Blood cultures reporting no growth at 48 hours. Mild pleasant confusion this morning with significant weakness. Echo completed, results pending. Objective - Vital Signs Vital signs: Vital Signs Temp 98.0 F 05/22/20 04:00 Pulse 98 05/22/20 08:00 Resp 16 05/22/20 08:00 BP 139/76 05/22/20 08:00 Pulse Ox 90 L 05/22/20 08:00 Intake & Output 05/21/20 05/22/20 05/22/20 18:59 06:59 18:59 Intake Total 113.5 90 Output Total 100 100 Balance 13.5 -100 90 Weight 53 kg Intake: Intake, IV Titration 113.5 Amount Diltiazem 125 mg In 113.5 Sodium Chloride 0.9% 100 ml @ 5 MG/HR 5 mls/hr IV .Q24H [facility] Rx#:[id number] Oral 90 Output: Urine 100 100 Other: Voiding Method Indwelling Catheter Diaper Diaper # Voids 5 1 # Bowel Movements 0 - Exam PHYSICAL EXAM: VITAL SIGNS: As above GENERAL: Alert and oriented 1, Lying in bed, no acute distress, lethargic HEENT: Conjunctivae normal. eyes normal. NECK: No JVD. No thyroid enlargement. CARDIOVASCULAR: S1, S2 regular.. No murmur RESPIRATION: Breath sounds diminished in the bases. No rhonchi or crackles. ABDOMEN: Soft, nontender . No guarding. no masses palpable. Positive Bowel sounds heard. LEGS: No edema. no swelling NERVOUS SYSTEM: Cranial N 2-12 grossly normal. Moves all 4 limbs. Diffuse weakness No focal deficits. Strength and sensation grossly intact.. Skin: Warm and dry, no rash - Labs CBC & Chem 7: 05/22/20 09:33 05/22/20 09:15 Labs: Abnormal Lab Results - Last 24 Hours (Table) 05/21/20 05/21/20 05/21/20 Range/Units 12:10 16:46 20:45 WBC (3.8-10.6) k/uL Neutrophils # (1.3-7.7) k/uL Chloride (98-107) mmol/L BUN (7-17) mg/dL Glucose (74-99) mg/dL POC Glucose (mg/dL) 118 H 149 H 133 H (75-99) mg/dL 05/22/20 05/22/20 05/22/20 Range/Units 06:24 09:15 09:33 WBC 12.2 H (3.8-10.6) k/uL Neutrophils # 10.7 H (1.3-7.7) k/uL Chloride 114 H (98-107) mmol/L BUN 34 H (7-17) mg/dL Glucose 136 H (74-99) mg/dL POC Glucose (mg/dL) 111 H (75-99) mg/dL Microbiology - Last 24 Hours (Table) 05/19/20 14:54 Blood Culture - Preliminary Blood No Growth after 48 hours Assessment and Plan Assessment: Acute, Covid-19 bilateral pneumonia Acute hypoxic respiratory failure secondary to the above Metabolic encephalopathy secondary to the above A. fib with RVR Acute renal failure Hypertension Degenerative joint disease Advanced dementia, suspect Alzheimer's History of nicotine dependence Moderate protein calorie malnutrition History of DVT Plan: Continue on current medication regime, monitoring, symptomatic treatment. Antiarrhythmics as per cardiology. Continue on Decadron, Remdesivir, vitamin C, vitamin D, zinc. Prognosis guarded given multiple complex medical issues. The impression and plan of care has been dictated as directed. : I performed a history and examination of this patient, discussed the same with the dictator. I agree with the dictator's note ,documented as a scribe. Any additional findings or plans will be noted.
[2020-05-22 20:40] LABS: Glucose,Whole Blood 143 mg/dL (75-99)
[2020-05-22] MEDS: ATORVASTATIN 20 MG TAB PO SCH (22:29)
[2020-05-23 06:40] LABS: Glucose,Whole Blood 122 mg/dL (75-99)
[2020-05-23] MEDS: SODIUM CHLORIDE 0.9% 1,000 ML IV SCH ×2 (08:00→17:53)
[2020-05-23] MEDS: METOPROLOL TARTRATE 25 MG TAB PO SCH (08:00)
[2020-05-23] MEDS: ALBUTEROL HFA INHALER INHALATION SCH ×4 (08:40→21:49)
[2020-05-23 08:47] LABS: Basophils % (A) 0 %; Eosinophils % (A) 0 %; HCT 41.1 % (34.0-46.0); HGB 13.3 gm/dL (11.4-16.0); Lymphocytes # (A) 1.2 k/uL (1.0-4.8); Lymphocytes % (A) 8 %; MCHC 32.4 g/dL (31.0-37.0); MCV 95.5 fL (80.0-100.0); Mean Platelet Volume 8.1; Monocytes # (A) 0.7 k/uL (0-1.0); Monocytes % (A) 5 %; Neutrophils # (A) 13.1 k/uL (1.3-7.7); Neutrophils % (A) 87 %; Platelet Count 209 k/uL (150-450); RBC 4.31 m/uL (3.80-5.40); RDW 13.3 % (11.5-15.5); WBC 15.1 k/uL (3.8-10.6)
[2020-05-23 09:07] LABS: African American GFR (CKD) >90 (>60 ml/min/1.73 sqM); Anion Gap 4 mmol/L; Blood Urea Nitrogen 29 mg/dL (7-17); Calcium 8.3 mg/dL (8.4-10.2); Carbon Dioxide 28 mmol/L (22-30); Chloride 111 mmol/L (98-107); Glucose 120 mg/dL (74-99); Non-African American GFR(CKD) 80 (>60 ml/min/1.73 sqM); Potassium 3.6 mmol/L (3.5-5.1); Sodium 143 mmol/L (137-145)
[2020-05-23] MEDS: LACTOBACILLUS ACIDOPH & BULGAR 1 EACH PACKET PO SCH (09:52)
[2020-05-23] MEDS: DEXAMETHASONE SOD PHOSPHATE 10 MG/ML 1 ML VIAL IV SCH (09:52)
[2020-05-23] MEDS: ZINC SULFATE 220 MG CAP PO SCH (09:53)
[2020-05-23] MEDS: CHOLECALCIFEROL 1,000 UNIT TAB PO SCH (09:53)
[2020-05-23] MEDS: DONEPEZIL 10 MG TAB PO SCH (09:53)
[2020-05-23] MEDS: ASCORBIC ACID 500 MG TAB PO SCH (09:53)
[2020-05-23] MEDS: METOPROLOL TARTRATE 50 MG TAB PO SCH ×2 (09:54→19:46)
[2020-05-23] MEDS: lisinopriL 10 MG TAB PO SCH (09:54)
[2020-05-23] MEDS: APIXABAN 2.5 MG TABLET PO SCH ×2 (09:54→19:46)
[2020-05-23] MEDS: MEMANTINE 10 MG TAB PO SCH ×2 (09:54→19:46)
[2020-05-23] MEDS: LEVOTHYROXINE 75 MCG TAB PO SCH (09:54)
[2020-05-23] MEDS: LORazepam 2 MG/ML INJ IV PRN ×2 (10:36→19:46)
[2020-05-23] MEDS: REMDESIVIR 100 MG in SODIUM CHLORIDE 0.9% 250 ML IVPB SCH (15:20)
--- NOTE | 2020-05-23 16:23 | P.PN ---
Subjective Progress Note Date: 05/23/20 This is an 81-year-old female who resides at [facility], admitted with acute bilateral coving pneumonia, acute hypoxic respiratory failure, metabolic encephalopathy, atrial fibrillation and multiple other medical issues.maintaining O2 sats in the low 90s on 6 L nasal cannula. Continues on Decadron, Remdesivir. Afebrile, WBC 12.2. Blood cultures reporting no growth at 48 hours. Mild pleasant confusion this morning with significant weakness. Echo completed, results pending. 05/23/2020 maintained on gentle IV fluid hydration. Oxygen requirements worsened, requiring 10 L high flow nasal cannula to maintain O2 sats in the low 90s. Continues on covid regimen. Occasional mild tachycardia. Afebrile, WBC 15.1. Blood cultures reporting no growth at 48 hours. Potassium 3.6. Echo reported normal LV function, EF 55-60%. Diet intake fluctuates from 0-50%. Denies chest pain, palpitations. Objective - Vital Signs Vital signs: Vital Signs Temp 97.8 F 05/23/20 04:00 Pulse 62 05/23/20 04:00 Resp 18 05/23/20 04:00 BP 145/67 05/23/20 04:00 Pulse Ox 93 L 05/23/20 04:00 Intake & Output 05/22/20 05/23/20 05/23/20 18:59 06:59 18:59 Intake Total 300 Output Total 0 Balance 300 0 Weight 55 kg Intake: Oral 300 Output: Urine 0 Other: Voiding Method Diaper Diaper # Voids 1 0 0 # Bowel Movements 1 - Exam PHYSICAL EXAM: VITAL SIGNS: As above GENERAL: Alert and oriented 1, sitting up in bed, no acute distress, pleasant, converses when questioned. HEENT: Conjunctivae normal. eyes normal. NECK: Supple, No JVD. CARDIOVASCULAR: S1, S2 regular.No murmur RESPIRATION: Essentially clear, Breath sounds diminished in the bases. No rhonchi or crackles. No wheezing. ABDOMEN: Soft, nontender . No guarding. no masses palpable. Positive Bowel sounds heard. LEGS: No edema. no swelling NERVOUS SYSTEM: Cranial N 2-12 grossly normal. Moves all 4 limbs. Diffuse weakness,No focal deficits. Strength and sensation grossly intact.. Skin: Warm and dry, no rash Microbiology 05/19/20 14:54 Blood Blood Culture - Preliminary No Growth after 72 hours - Labs CBC & Chem 7: 05/23/20 07:56 05/23/20 07:56 Labs: Abnormal Lab Results - Last 24 Hours (Table) 05/22/20 05/22/20 05/22/20 Range/Units 09:15 09:33 20:39 WBC 12.2 H (3.8-10.6) k/uL Neutrophils # 10.7 H (1.3-7.7) k/uL Chloride 114 H (98-107) mmol/L BUN 34 H (7-17) mg/dL Glucose 136 H (74-99) mg/dL POC Glucose (mg/dL) 143 H (75-99) mg/dL Calcium (8.4-10.2) mg/dL 05/23/20 05/23/20 05/23/20 Range/Units 06:32 07:56 07:56 WBC 15.1 H (3.8-10.6) k/uL Neutrophils # 13.1 H (1.3-7.7) k/uL Chloride 111 H (98-107) mmol/L BUN 29 H (7-17) mg/dL Glucose 120 H (74-99) mg/dL POC Glucose (mg/dL) 122 H (75-99) mg/dL Calcium 8.3 L (8.4-10.2) mg/dL Microbiology - Last 24 Hours (Table) 05/19/20 14:54 Blood Culture - Preliminary Blood No Growth after 72 hours Assessment and Plan Assessment: Acute, Covid-19 bilateral pneumonia Acute hypoxic respiratory failure secondary to the above Metabolic encephalopathy secondary to the above Dehydration A. fib with RVR Acute renal failure Hypertension Degenerative joint disease Advanced dementia, suspect Alzheimer's History of nicotine dependence Moderate protein calorie malnutrition History of DVT Plan: Continue on current medication regime, monitoring, symptomatic treatment. Decrease IV fluids to 20 MLS per hour Maintain Decadron, Remdesivir, vitamin C, vitamin D, zinc. Follow closely with pulmonary .Prognosis guarded given multiple complex medical issues. The impression and plan of care has been dictated as directed. : I performed a history and examination of this patient, discussed the same with the dictator. I agree with the dictator's note ,documented as a scribe. Any additional findings or plans will be noted.
[2020-05-23] MEDS ORDERED: Potassium Replacement Protocol 1 EACH MISC MISCELLANE PRN (16:25)
[2020-05-23] MEDS ORDERED: POTASSIUM CHLORIDE ER 20 MEQ TAB.ER PO SCH (17:00)
--- NOTE | 2020-05-23 19:28 | P.PN ---
Subjective Progress Note Date: 05/23/20 Principal diagnosis: Covid 19 pneumonia Acute hypoxic respiratory failure Altered mental status History of deep venous thrombosis on the left side Advanced dementia and Alzheimer's disease 05/23/2020, patient seen eval examined during the rounds labs reviewed medications reviewed remains awake mumbles, patient on 10 L high flow oxygen, saturation have been stable, 95% last check continue get therapy, 05/22/2020, patient seen eval examined during the rounds labs reviewed medications reviewed care plan discussed, denies any chest pain, patient had episode of A. fib with RVR, cardiology is also following she has been on Cardizem drip now 05/21/2020, patient seen eval examined during the rounds labs reviewed medications reviewed, she remains afebrile, oxygen saturation 93% on 3 L, hemodynamic status stable, This is a 89-year-old female advanced dementia patient is a resident of [facility] followed Dr. Candi Tavarez for primary care activity, she was noted by fa karolyn member to be more somnolent fatigued and lethargic brought into the hospital for further evaluation Covid 19 test is positive chest x-ray some subtle infiltrates are present, her past medical history significant for deep venous thrombosis, hypertension hypertensive cardiovascular disease, hepatitis, with history of advanced dementia and Alzheimer's disease, currently patient is being treated with bronchodilator, direct anticoagulants, continuation of home medicine, and dexamethasone 6 mg daily, patient white cell count is up to 17,000, BUN/creatinine 37 and 1.13, oxygen saturation is 96% on 3 L, she is awake but nonverbal and noncommunicative Objective - Vital Signs Vital signs: Vital Signs Temp 97.7 F 05/23/20 12:00 Pulse 69 05/23/20 15:47 Resp 20 05/23/20 15:47 BP 152/81 05/23/20 15:47 Pulse Ox 95 05/23/20 15:47 Intake & Output 05/23/20 05/23/20 05/24/20 06:59 18:59 06:59 Intake Total 520 Output Total 0 Balance 0 520 Weight 55 kg Intake: Intake, IV Titration 420 Amount Remdesivir (Eua) 100 mg 420 In Sodium Chloride 0.9% 250 ml @ 250 mls/hr IVPB DAILY@1400 [facility] Rx#: [id number] Oral 100 Output: Urine 0 Other: Voiding Method Diaper Diaper # Voids 0 2 - Exam - Constitutional General appearance: average body habitus, cooperative, disheveled - EENT Eyes: PERRLA Ears: bilateral: normal - Neck Carotids: bilateral: upstroke normal Thyroid: bilateral: normal size - Respiratory Respiratory: bilateral: diminished - Cardiovascular Rhythm: regular Heart sounds: normal: S1, S2 - Gastrointestinal General gastrointestinal: normal bowel sounds - Integumentary Integumentary: normal - Musculoskeletal Musculoskeletal: generalized weakness - Psychiatric Arousable but nonverbal and noncommunicative - Labs CBC & Chem 7: 05/23/20 07:56 05/23/20 07:56 Labs: Abnormal Lab Results - Last 24 Hours (Table) 05/22/20 05/23/20 05/23/20 Range/Units 20:39 06:32 07:56 WBC 15.1 H (3.8-10.6) k/uL Neutrophils # 13.1 H (1.3-7.7) k/uL Chloride (98-107) mmol/L BUN (7-17) mg/dL Glucose (74-99) mg/dL POC Glucose (mg/dL) 143 H 122 H (75-99) mg/dL Calcium (8.4-10.2) mg/dL 05/23/20 Range/Units 07:56 WBC (3.8-10.6) k/uL Neutrophils # (1.3-7.7) k/uL Chloride 111 H (98-107) mmol/L BUN 29 H (7-17) mg/dL Glucose 120 H (74-99) mg/dL POC Glucose (mg/dL) (75-99) mg/dL Calcium 8.3 L (8.4-10.2) mg/dL Microbiology - Last 24 Hours (Table) 05/19/20 14:54 Blood Culture - Preliminary Blood No Growth after 96 hours Assessment and Plan Assessment: Atrial fibrillation with RVR Covid 19 pneumonia Acute hypoxic respiratory failure Altered mental status 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 fib RVR on Metaprel all now rate well controlled Supplemental oxygen IV Decadron for 10 days IV Remdesivir for 5 days Prone positioning or side positioning if possible Continue oral direct anticoagulants Continue home medications Overall prognosis guarded Time with Patient: Greater than 30
[2020-05-23] MEDS: ATORVASTATIN 20 MG TAB PO SCH (19:46)
[2020-05-24] MEDS: LORazepam 2 MG/ML INJ IV PRN ×3 (02:05→22:12)
[2020-05-24 08:45] LABS: Basophils % (A) 0 %; Eosinophils % (A) 0 %; HCT 43.1 % (34.0-46.0); HGB 14.1 gm/dL (11.4-16.0); Lymphocytes # (A) 1.3 k/uL (1.0-4.8); Lymphocytes % (A) 8 %; MCHC 32.6 g/dL (31.0-37.0); Monocytes # (A) 0.7 k/uL (0-1.0); Monocytes % (A) 4 %; Neutrophils # (A) 14.5 k/uL (1.3-7.7); Neutrophils % (A) 87 %; Platelet Count 233 k/uL (150-450); RBC 4.53 m/uL (3.80-5.40); RDW 13.6 % (11.5-15.5); WBC 16.7 k/uL (3.8-10.6)
[2020-05-24 09:13] LABS: African American GFR (CKD) >90 (>60 ml/min/1.73 sqM); Anion Gap 6 mmol/L; Blood Urea Nitrogen 26 mg/dL (7-17); Calcium 8.4 mg/dL (8.4-10.2); Carbon Dioxide 23 mmol/L (22-30); Chloride 113 mmol/L (98-107); Glucose 125 mg/dL (74-99); Non-African American GFR(CKD) 88 (>60 ml/min/1.73 sqM); Sodium 142 mmol/L (137-145)
[2020-05-24 09:16] LABS: Potassium 4.3 mmol/L (3.5-5.1)
[2020-05-24] MEDS: ALBUTEROL HFA INHALER INHALATION SCH ×4 (09:36→21:24)
--- NOTE | 2020-05-24 11:14 | P.PN ---
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 fib with RVR, cardiology is also following she has been on Cardizem drip now 05/21/2020, patient seen eval examined during the rounds labs reviewed medications reviewed, she remains afebrile, oxygen saturation 93% on 3 L, hemodynamic status stable, This is a 89-year-old female advanced dementia patient is a resident of [facility] followed Dr. Candi Tavarez for primary care activity, she was noted by family member to be more somnolent fatigued and lethargic brought into the hospital for further evaluation Covid 19 test is positive chest x-ray some subtle infiltrates are present, her past medical history significant for deep venous thrombosis, hypertension hypertensive cardiovascular disease, hepatitis, with history of advanced dementia and Alzheimer's disease, currently patient is being treated with bronchodilator, direct anticoagulants, continuation of home medicine, and dexamethasone 6 mg daily, patient white cell count is up to 17,000, BUN/creatinine 37 and 1.13, oxygen saturation is 96% on 3 L, she is awake but nonverbal and noncommunicative Objective - Vital Signs Vital signs: Vital Signs Temp 98.4 F 05/23/20 20:00 Pulse 64 05/24/20 03:12 Resp 17 05/24/20 03:12 BP 149/91 05/24/20 03:12 Pulse Ox 95 05/24/20 03:12 Intake & Output 05/23/20 05/24/20 05/24/20 18:59 06:59 18:59 Intake Total 520 240 Balance 520 240 Weight 55 kg Intake: Intake, IV Titration 420 Amount Remdesivir (Eua) 100 mg 420 In Sodium Chloride 0.9% 250 ml @ 250 mls/hr IVPB DAILY@1400 [facility] Rx#: [id number] Oral 100 240 Other: Voiding Method Diaper Diaper # Voids 2 2 - Exam - Constitutional General appearance: average body habitus, cooperative, disheveled - EENT Eyes: PERRLA Ears: bilateral: normal - Neck Carotids: bilateral: upstroke normal Thyroid: bilateral: normal size - Respiratory Respiratory: bilateral: diminished - Cardiovascular Rhythm: regular Heart sounds: normal: S1, S2 - Gastrointestinal General gastrointestinal: normal bowel sounds - Integumentary Integumentary: normal - Musculoskeletal Musculoskeletal: generalized weakness - Psychiatric Arousable but nonverbal and noncommunicative - Labs CBC & Chem 7: 05/24/20 08:24 05/24/20 08:24 Labs: Abnormal Lab Results - Last 24 Hours (Table) 05/24/20 05/24/20 Range/Units 08:24 08:24 WBC 16.7 H (3.8-10.6) k/uL Neutrophils # 14.5 H (1.3-7.7) k/uL Chloride 113 H (98-107) mmol/L BUN 26 H (7-17) mg/dL Creatinine 0.48 L (0.52-1.04) mg/dL Glucose 125 H (74-99) mg/dL Microbiology - Last 24 Hours (Table) 05/19/20 14:54 Blood Culture - Preliminary Blood No Growth after 96 hours Assessment and Plan Assessment: Atrial fibrillation with RVR Covid 19 pneumonia Acute hypoxic respiratory failure Altered mental status likely related to multifactorial process 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 fib RVR on Metaprel all now rate well controlled Supplemental oxygen IV Decadron for 10 days IV Remdesivir for 5 days Prone positioning or side positioning if possible Continue oral direct anticoagulants Continue home medications Overall prognosis guarded Time with Patient: Greater than 30
[2020-05-24] MEDS: LACTOBACILLUS ACIDOPH & BULGAR 1 EACH PACKET PO SCH (12:48)
[2020-05-24] MEDS: LEVOTHYROXINE 75 MCG TAB PO SCH (12:48)
[2020-05-24] MEDS: METOPROLOL TARTRATE 50 MG TAB PO SCH ×2 (12:48→19:54)
[2020-05-24] MEDS: CHOLECALCIFEROL 1,000 UNIT TAB PO SCH (12:48)
[2020-05-24] MEDS: ZINC SULFATE 220 MG CAP PO SCH (12:49)
[2020-05-24] MEDS: DONEPEZIL 10 MG TAB PO SCH (12:49)
[2020-05-24] MEDS: ASCORBIC ACID 500 MG TAB PO SCH (12:49)
[2020-05-24] MEDS: MEMANTINE 10 MG TAB PO SCH ×2 (12:49→19:54)
[2020-05-24] MEDS: APIXABAN 2.5 MG TABLET PO SCH ×2 (12:49→19:54)
[2020-05-24] MEDS: lisinopriL 10 MG TAB PO SCH (12:49)
[2020-05-24] MEDS: REMDESIVIR 100 MG in SODIUM CHLORIDE 0.9% 250 ML IVPB SCH (12:50)
[2020-05-24] MEDS: DEXAMETHASONE SOD PHOSPHATE 10 MG/ML 1 ML VIAL IV SCH (12:50)
[2020-05-24 14:25] VITALS: BMI 19.0
--- NOTE | 2020-05-24 15:18 | P.PN ---
Subjective Progress Note Date: 05/24/20 This is an 81-year-old female who resides at [facility], admitted with acute bilateral coving pneumonia, acute hypoxic respiratory failure, metabolic encephalopathy, atrial fibrillation and multiple other medical issues.maintaining O2 sats in the low 90s on 6 L nasal cannula. Continues on Decadron, Remdesivir. Afebrile, WBC 12.2. Blood cultures reporting no growth at 48 hours. Mild pleasant confusion this morning with significant weakness. Echo completed, results pending. 05/23/2020 maintained on gentle IV fluid hydration. Oxygen requirements worsened, requiring 10 L high flow nasal cannula to maintain O2 sats in the low 90s. Continues on covid regimen. Occasional mild tachycardia. Afebrile, WBC 15.1. Blood cultures reporting no growth at 48 hours. Potassium 3.6. Echo reported normal LV function, EF 55-60%. Diet intake fluctuates from 0-50%. Denies chest pain, palpitations. 05/24/2020 continues on 2 L nasal cannula maintaining O2 sats in the 90 on Covid regimen. Minimally converses. Tired appearing. Afebrile, WBC 16.7. BUN 26, creatinine 0.48. Diet intake 25-50%, blood sugars controlled. Objective - Vital Signs Vital signs: Vital Signs Temp 98.4 F 05/23/20 20:00 Pulse 64 05/24/20 03:12 Resp 17 05/24/20 03:12 BP 149/91 05/24/20 03:12 Pulse Ox 95 05/24/20 03:12 Intake & Output 05/23/20 05/24/20 05/24/20 18:59 06:59 18:59 Intake Total 520 240 Balance 520 240 Weight 55 kg 55 kg Intake: Intake, IV Titration 420 Amount Remdesivir (Eua) 100 mg 420 In Sodium Chloride 0.9% 250 ml @ 250 mls/hr IVPB DAILY@1400 [facility] Rx#: [id number] Oral 100 240 Other: Voiding Method Diaper Diaper # Voids 2 2 - Exam PHYSICAL EXAM: VITAL SIGNS: As above GENERAL: Arousable, Alert and oriented 1, lying in bed, weaker, minimally conversing HEENT: Conjunctivae normal. eyes normal. Oral mucosa dry NECK: Supple, No JVD. CARDIOVASCULAR: S1, S2 regular.No murmur RESPIRATION: Essentially clear, Breath sounds diminished in the bases. No rhonchi or crackles. No wheezing. ABDOMEN: Soft, nontender . No guarding. no masses palpable. Positive Bowel sounds heard. LEGS: No edema. no swelling NERVOUS SYSTEM: Cranial N 2-12 grossly normal. Moves all 4 limbs. Diffuse weakness,No focal deficits. Strength and sensation grossly intact. Skin: Warm and dry, no rash - Labs CBC & Chem 7: 05/24/20 08:24 05/24/20 08:24 Labs: Abnormal Lab Results - Last 24 Hours (Table) 05/24/20 05/24/20 Range/Units 08:24 08:24 WBC 16.7 H (3.8-10.6) k/uL Neutrophils # 14.5 H (1.3-7.7) k/uL Chloride 113 H (98-107) mmol/L BUN 26 H (7-17) mg/dL Creatinine 0.48 L (0.52-1.04) mg/dL Glucose 125 H (74-99) mg/dL Microbiology - Last 24 Hours (Table) 05/19/20 14:54 Blood Culture - Preliminary Blood No Growth after 96 hours Assessment and Plan Assessment: Acute, Covid-19 bilateral pneumonia Acute hypoxic respiratory failure secondary to the above Metabolic encephalopathy secondary to the above Dehydration A. fib with RVR Acute renal failure Hypertension Degenerative joint disease Advanced dementia, suspect Alzheimer's History of nicotine dependence Moderate protein calorie malnutrition History of DVT Plan: Continue on current medication regime, monitoring, symptomatic treatment. Continue with Decadron, Remdesivir, vitamin C, vitamin D, zinc, Eliquis. Follow closely with pulmonary .Prognosis guarded given multiple complex medical issues. The impression and plan of care has been dictated as directed. : I performed a history and examination of this patient, discussed the same with the dictator. I agree with the dictator's note ,documented as a scribe. Any additional findings or plans will be noted.
[2020-05-24] MEDS: SODIUM CHLORIDE 0.9% 1,000 ML IV SCH (19:16)
[2020-05-24] MEDS: ATORVASTATIN 20 MG TAB PO SCH (19:56)
[2020-05-25] MEDS: LORazepam 2 MG/ML INJ IV PRN (03:26)
[2020-05-25] MEDS: ALBUTEROL HFA INHALER INHALATION SCH ×2 (08:13→11:09)
[2020-05-25] MEDS: APIXABAN 2.5 MG TABLET PO SCH (09:07)
[2020-05-25] MEDS: MEMANTINE 10 MG TAB PO SCH (09:07)
[2020-05-25] MEDS: LEVOTHYROXINE 75 MCG TAB PO SCH (09:07)
[2020-05-25] MEDS: lisinopriL 10 MG TAB PO SCH (09:07)
[2020-05-25] MEDS: DONEPEZIL 10 MG TAB PO SCH (09:07)
[2020-05-25] MEDS: LACTOBACILLUS ACIDOPH & BULGAR 1 EACH PACKET PO SCH (09:07)
[2020-05-25] MEDS: DEXAMETHASONE SOD PHOSPHATE 10 MG/ML 1 ML VIAL IV SCH ×2 (09:08→09:23)
[2020-05-25] MEDS: ASCORBIC ACID 500 MG TAB PO SCH (09:08)
[2020-05-25] MEDS: METOPROLOL TARTRATE 50 MG TAB PO SCH (09:08)
[2020-05-25] MEDS: ZINC SULFATE 220 MG CAP PO SCH (09:08)
[2020-05-25] MEDS: CHOLECALCIFEROL 1,000 UNIT TAB PO SCH (09:08)
[2020-05-25] MEDS: SODIUM CHLORIDE 0.9% 1,000 ML IV SCH (09:24)
--- NOTE | 2020-05-25 11:02 | P.PN ---
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 05/25/2020, patient seen and examined, continue require high flow oxygen 70% oxygen saturation is marginal 89-90%, will get a chest x-ray 05/24/2020, patient seen eval reexamined, zbigniew intermittently remains nonverbal and noncommunicative at times moans, remains on 10 L oxygen saturation remains stable 95%, 05/23/2020, patient seen eval examined during the rounds labs reviewed me dications reviewed remains awake mumbles, patient on 10 L high flow oxygen, saturation have been stable, 95% last check continue get therapy, 05/22/2020, patient seen eval examined during the rounds labs reviewed medications reviewed care plan discussed, denies any chest pain, patient had episode of A. fib with RVR, cardiology is also following she has been on Cardizem drip now 05/21/2020, patient seen eval examined during the rounds labs reviewed medications reviewed, she remains afebrile, oxygen saturation 93% on 3 L, hemodynamic status stable, This is a 89-year-old female advanced dementia patient is a resident of [facility] followed Dr. Candi Tavarez for primary care activity, she was noted by family member to be more somnolent fatigued and lethargic brought into the hospital for further evaluation Covid 19 test is positive chest x-ray some subtle infiltrates are present, her past medical history significant for deep venous thrombosis, hypertension hypertensive cardiovascular disease, hepatitis, with history of advanced dementia and Alzheimer's disease, currently patient is being treated with bronchodilator, direct anticoagulants, continuation of home medicine, and dexamethasone 6 mg daily, patient white cell count is up to 17,000, BUN/creatinine 37 and 1.13, oxygen saturation is 96% on 3 L, she is awake but nonverbal and noncommunicative Objective - Vital Signs Vital signs: Vital Signs Temp 97.8 F 05/25/20 03:13 Pulse 87 05/25/20 03:13 Resp 20 05/25/20 03:13 BP 156/88 05/25/20 03:13 Pulse Ox 89 L 05/25/20 08:14 Intake & Output 05/24/20 05/25/20 05/25/20 18:59 06:59 18:59 Intake Total 1100 Balance 1100 Weight 55 kg 54 kg Intake: Intake, IV Titration 660 Amount Remdesivir 100 mg In 500 Sodium Chloride 0.9% 250 ml @ 250 mls/hr IVPB DAILY@1400 [facility] Rx#: [id number] Sodium Chloride 0.9% 1, 160 000 ml @ 20 mls/hr IV . Q24H [facility] Rx#:[id number] Oral 440 Other: Voiding Method Diaper Diaper # Voids 1 2 # Bowel Movements 1 - Exam - Constitutional General appearance: average body habitus, cooperative, disheveled - EENT Eyes: PERRLA Ears: bilateral: normal - Neck Carotids: bilateral: upstroke normal Thyroid: bilateral: normal size - Respiratory Respiratory: bilateral: diminished - Cardiovascular Rhythm: regular Heart sounds: normal: S1, S2 - Gastrointestinal General gastrointestinal: normal bowel sounds - Integumentary Integumentary: normal - Musculoskeletal Musculoskeletal: generalized weakness - Psychiatric Arousable but nonverbal and noncommunicative - Labs CBC & Chem 7: 05/24/20 08:24 05/24/20 08:24 Labs: Microbiology - Last 24 Hours (Table) 05/19/20 14:54 Blood Culture - Preliminary Blood No Growth after 120 hours Assessment and Plan Assessment: Atrial fibrillation with RVR, rate improved Covid 19 pneumonia Acute hypoxic respiratory failure with worsening saturation Altered mental status likely related to multifactorial process History of deep 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
[2020-05-25 11:53] VITALS: BP 162/74; TEMP 99.6
[2020-05-25] MEDS ORDERED: ACETAMINOPHEN SUPPOSITORY 650 MG SUPP RECTAL PRN (13:02)
[2020-05-25] MEDS ORDERED: LORazepam 2 MG/ML INJ IV PRN (13:02)
[2020-05-25] MEDS ORDERED: ATROPINE OPHTH SOLN 1% 5ML BTL SUBLINGUAL PRN (13:02)
[2020-05-25] MEDS ORDERED: ONDANSETRON 4 MG/2 ML VIAL IVP PRN (13:02)
[2020-05-25] MEDS ORDERED: SCOPOLAMINE 1.5MG/72HR PATCH TRANSDERM SCH (13:15)
[2020-05-25] MEDS ORDERED: MORPHINE SULFATE (100 MG/2 ML) 100 MG in SODIUM CHLORIDE 0.9% 100 ML IV SCH (14:00)
--- NOTE | 2020-05-25 17:24 | P.PN ---
Subjective Progress Note Date: 05/25/20 This is an 81-year-old female who resides at [facility], admitted with acute bilateral coving pneumonia, acute hypoxic respiratory failure, metabolic encephalopathy, atrial fibrillation and multiple other medical issues.maintaining O2 sats in the low 90s on 6 L nasal cannula. Continues on Decadron, Remdesivir. Afebrile, WBC 12.2. Blood cultures reporting no growth at 48 hours. Mild pleasant confusion this morning with significant weakness. Echo completed, results pending. 05/23/2020 maintained on gentle IV fluid hydration. Oxygen requirements worsened, requiring 10 L high flow nasal cannula to maintain O2 sats in the low 90s. Continues on covid regimen. Occasional mild tachycardia. Afebrile, WBC 15.1. Blood cultures reporting no growth at 48 hours. Potassium 3.6. Echo reported normal LV function, EF 55-60%. Diet intake fluctuates from 0-50%. Denies chest pain, palpitations. 05/24/2020 continues on 10 L nasal cannula maintaining O2 sats in the 90 on Covid regimen. Minimally converses. Tired appearing. Afebrile, WBC 16.7. BUN 26, creatinine 0.48. Diet intake 25-50%, blood sugars controlled. 05/25/2020 nonverbal this morning, respiratory status continued to worsen, desatted, requiring higher amounts of oxygen, now on airvo. Family notified and converted to hospice per their wishes. Objective - Vital Signs Vital signs: Vital Signs Temp 99.6 F 05/25/20 09:00 Pulse 52 L 05/25/20 09:00 Resp 26 H 05/25/20 09:00 BP 162/74 05/25/20 09:00 Pulse Ox 95 05/25/20 09:00 Intake & Output 05/24/20 05/25/20 05/25/20 18:59 06:59 18:59 Intake Total 1100 0.391 Balance 1100 0.391 Weight 55 kg 54 kg Intake: Intake, IV Titration 660 0.391 Amount Morphine Sulfate (100 mg/ 0.391 2 ml) 100 mg In Sodium Chloride 0.9% 100 ml @ 1 MG/HR 1.02 mls/hr IV . Q24H [facility] Rx#:[id number] Remdesivir 100 mg In 500 Sodium Chloride 0.9% 250 ml @ 250 mls/hr IVPB DAILY@1400 [facility] Rx#: [id number] Sodium Chloride 0.9% 1, 160 000 ml @ 20 mls/hr IV . Q24H [facility] Rx#:[id number] Oral 440 Other: Voiding Method Diaper Diaper Diaper # Voids 1 1 # Bowel Movements 1 - Exam PHYSICAL EXAM: VITAL SIGNS: As above GENERAL: Nonverbal, difficult to arouse, wearing airvo HEENT: Conjunctivae normal. eyes normal. Oral mucosa dry NECK: Supple, No JVD. CARDIOVASCULAR: S1, S2 regular.No murmur RESPIRATION: Essentially clear, Breath sounds diminished in the bases. Scattered rhonchi ABDOMEN: Soft, nontender . No guarding. no masses palpable. Positive Bowel sounds heard. LEGS: No edema. no swelling. NERVOUS SYSTEM: Unable to assess Skin: Warm and dry, no rash - Labs CBC & Chem 7: 05/24/20 08:24 05/24/20 08:24 Labs: Microbiology - Last 24 Hours (Table) 05/19/20 14:54 Blood Culture - Final Blood No Growth after 144 hours Assessment and Plan Assessment: Acute, Covid-19 bilateral pneumonia Acute hypoxic respiratory failure secondary to the above Metabolic encephalopathy secondary to the above Dehydration A. fib with RVR Acute renal failure Hypertension Degenerative joint disease Advanced dementia, suspect Alzheimer's History of nicotine dependence Moderate protein calorie malnutrition History of DVT No code, no CPR, no intubation Hospice Plan: Continue on current medication regime, monitoring, symptomatic treatment. Prognosis poor. Respiratory status declined and patient is being converted over to hospice, as per family's wishes. The impression and plan of care has been dictated as directed. : I performed a history and examination of this patient, discussed the same with the dictator. I agree with the dictator's note ,documented as a scribe. Any additional findings or plans will be noted.
[2020-05-26 00:45] VITALS: RESP 8
[2020-05-26 07:43] VITALS: PULSE 150
== END 2020-05-26 11:51 | disposition expired | DRG 177 ==
LOC: EC 14:22 → 3SCARD 16:35
PROVIDERS: ADMIT Family Medicine; ATTEND Family Medicine
PROC: XW033E5 Introduction of Remdesivir Anti-infective into Peripheral Vein, Percutaneous Approach, New Technology Group 5 (ICD-10-PCS; principal; 2020-05-20)
DX: U07.1 COVID-19 (principal); G92 Toxic encephalopathy; J96.01 Acute respiratory failure with hypoxia; J12.89 Other viral pneumonia; E44.0 Moderate protein-calorie malnutrition; Z68.1 Body mass index [BMI] 19.9 or less, adult; N17.9 Acute kidney failure, unspecified; I48.19 Other persistent atrial fibrillation; D72.810 Lymphocytopenia; G30.9 Alzheimer's disease, unspecified; F02.80 Dementia in other diseases classified elsewhere, unspecified severity, without behavioral disturbance, psychotic disturbance, mood disturbance, and anxiety; I11.9 Hypertensive heart disease without heart failure; Z66 Do not resuscitate; Z51.5 Encounter for palliative care; E86.0 Dehydration; E07.9 Disorder of thyroid, unspecified; R54 Age-related physical debility; M19.90 Unspecified osteoarthritis, unspecified site; Z79.01 Long term (current) use of anticoagulants; Z79.890 Hormone replacement therapy; Z79.51 Long term (current) use of inhaled steroids; Z79.899 Other long term (current) drug therapy; Z87.891 Personal history of nicotine dependence; Z86.718 Personal history of other venous thrombosis and embolism; Z86.010 Personal history of colon polyps; Z86.19 Personal history of other infectious and parasitic diseases; Z90.49 Acquired absence of other specified parts of digestive tract; Z87.19 Personal history of other diseases of the digestive system; Z96.641 Presence of right artificial hip joint; Z87.42 Personal history of other diseases of the female genital tract; Z87.01 Personal history of pneumonia (recurrent); Z90.721 Acquired absence of ovaries, unilateral; Z98.42 Cataract extraction status, left eye; Z98.41 Cataract extraction status, right eye; Z87.39 Personal history of other diseases of the musculoskeletal system and connective tissue; Z98.890 Other specified postprocedural states; Z88.5 Allergy status to narcotic agent; Z88.0 Allergy status to penicillin
CPT/HCPCS: 36415; 70450; 71045; 80048; 80053; 81003; 82140; 82330; 83605; 83615; 83735; 84145; 84443; 84484; 85025; 85379; 85610; 85730; 86140; 87040; 87635; 93005; 93306; 94640; 94760; 96374; 99285